=== PATIENT | female | born 1990 | race Two or more races ===

== ENCOUNTER 2023-10-08 19:23 | Outpatient (REF) | payer BC, SELFPAY ==
[2023-10-14 11:09] LABS: Age Gdln ACOG Testing Note (.); HPV Aptima Negative (Negative); IGP, Aptima HPV, rfx 16/18,45 Note (.)
== END 2023-10-08 19:24 | disposition home or self-care (01) ==
LOC: LAB 19:23
PROVIDERS: PCP Nurse Practitioner; Visit Provider Obstetrics & Gynecology
DX: Z01.419 Encounter for gynecological examination (general) (routine) without abnormal findings (principal)
CPT/HCPCS: 87624; G0145

== ENCOUNTER 2025-04-04 11:23 | Outpatient (OUT) | payer BC, SELFPAY ==
--- OUTSIDE RECORDS SUMMARY | 2025-04-04 11:25 | XMS_ITS | Encounter Summary ---
Author Organization CodeCombat tem Address [facility] [id number] [address] [place] [address] Care Team Providers Care Food And Beverage Operations Manager Name Role Phone No Pcp, No Pcp Primary Care Provider Unavailabl e Encounter Details Date Type Department Care Team (Late st Contact Info) Description 03/09/2023 Orders Only [facility] Services - Women's Services [address] [place] [address] Farrah Champion, TOWBOAT ENGINEER-[facility] [address] [place] [address] Social History Tobacco Use Types Packs/Day Years Used Date Smoking Tobacco: Never Smokeless Tobacco: Never Alcohol Use Standard Drinks/Week Comments Yes 0 (1 standard drink = 0.6 oz pur e alcohol) ocassionally Social Connection and Isolat ion Panel [NHANES] Answer Date Recorded In a typical week, how many times do you talk on the phone with family, friends, or neighbors? More than three times a week 11/09/2020 How often do you get togethe r with friends or relatives? More than three times a week 11/09/2020 How often do you attend chur ch or church services? Never 11/09/2020 Do you belong to any clubs o r organizations such as congregation groups, unions, fraternal or athletic groups, or school groups? No 11/09/2020 Attends Club or Organization Meetings Not on rayray e 11/09/2020 Are you , , di vorced, , never , or living with a partner? Living with partner 11/09/2020 AUDIT-C Answer Date Recorded Frequency of Alcohol Consumption Never 09/07/2018 Average Number of Drinks Not on file 019 Frequency of Binge Drinking Not on file 08/27 Overall Financial Resource Strain (CARDIA) Answe r Date Recorded How hard is it for you to pa y for the very basics like food, housing, medical care, and heating? Not hard at all 11/09/2020 PHQ-2 Answer Date Recorded Total Score 0 11/09/2020 [facility] - Occupational Stress Questionnaire Answer Date Recorded Do you feel stress - tense, restless, nervous, or anxious, or unable to sleep at night because your mind is troubled all the time - these days? Not at all 11/09/2020 Exercise Vital Sign Answer Date Recorde d On average, how many days pe r week do you engage in moderate to strenuous exercise (like a brisk walk)? 0 days 11/09/2020 On average, how many minutes do you engage in exercise at this level? 0 min 11/09/2020 PRAPARE - Transportation Answer Date Re corded In the past 12 months, has l ack of transportation kept you from medical appointments or from getting medications? No 10/25 In the past 12 months, has l ack of transportation kept you from meetings, work, or from getting things needed for daily living? No 11/09/2020 [place] Depression Scale Answer Date Recorded [place] Depression Scale Total 0 12/18/2020 The thought of harming myself has occurred to me . Never 12/18/2020 Childcare Answer Date Recorded Do problems getting child ca re make it difficult for you to work or study? No 11/09/2020 Employment Answer Date Recorded Do you need help finding a l al career center and/or a training program? No 11/09/2020 Purpose - Life Answer Date Recorded I have a purpose and direction in my life. Stron gly Agree 11/09/2020 Comments No Sex and Gender Information Value Date Recorded Sex Assigned at Not on file Legal Sex Female 11:43 AM EDT Gender Identity Not on file Sexual Orientation Not on file documented as of this encounter Plan of Treatment Not on file documented as of this encounter Procedures Procedure Name Priority Date/Time Associated Diagnosis Comments COLPOSCOPY Routine 04/10/2022 12:00 AM EDT documented in this encounter Results * Colposcopy (04/10/2022 12:00 AM EDT) us Not In System Ref Prov PROCEDURE/MINOR SURGICAL ORDERABLES Final Result MANUALLY TRANSCRIBED RESULTS documented in this encounter Visit Diagnoses Not on filedocumented in this encounter Additional Health Concerns Infection Onset Date Last Indicated Resolved Time COVID-19 Rule-Out 08/04/2023 08/04/2023 08/04/2023 8:20 PM EST Influenza 08/04/2023 08/04/2023 08/11/2023 11:1 2 PM EST Assessment Noted Time PHQ-9 Depression Total Score: 0 11/10/19 21 8:46 AM EDT documented as of this encounter Care Teams Food And Beverage Operations Manager Relationship Specialty Start Date End Date No Pcp, [place] [id number] PCP - General Family Medicine 08/04/23 documented as of this encounter
--- OUTSIDE RECORDS SUMMARY | 2025-04-04 11:25 | XMS_ITS | Encounter Summary ---
Author Organization [facility] Address [address] [facility] [place] [address] Care Team Providers Care Traffic Court Magistrate Name Role Phone Farrah Barragan MD Primary Care Provider [phone] Encounter Details Date Type Department Care Team (Late Contact Info) Description 01/09/2025 Results Follow-Up [facility] [address] [place] [address] Farrah Harrison MA THINPREP IMAGING PAP AND HPV DNA REFLEX HPV 16,18 Social History Tobacco Use Types Packs/Day Years Used Date Smoking Tobacco: Never Smokeless Tobacco: Never Alcohol Use Standard Drinks/Week Comments Not Currently 0 (1 standard drink = 0.6 oz pur e alcohol) Comments No Sex and Gender Information Value Date Recorded Sex Assigned at Not on file Legal Sex Female 1:56 PM EST Gender Identity Not on file Sexual Orientation Not on file documented as of this encounter Plan of Treatment Upcoming Encounters Date Type Department Care Team ([facility] Contact Info) Description 04/20/2025 3:50 PM EDT Office Visit [facility] [address] [place] [address] Digna Ham NP [address] [place] [address] documented as of this encounter Visit Diagnoses Not on filedocumented in this encounter Care Teams Traffic Court Magistrate Relationship Specialty Start Date End Date Farrah Barragan MD [address] [place] [address] PCP - General Family Medicine 01/12/24 documented as of this encounter
--- OUTSIDE RECORDS SUMMARY | 2025-04-04 11:25 | XMS_ITS | Encounter Summary ---
Author Organization Peerio tem Address [id number] [address] [place] [address] Care Team Providers Care Needle Process Felt Goods Supervisor Name Role Phone No Pcp, No Pcp Primary Care Provider Unavailabl e Reason for Visit * Reason Comments Med Refill Encounter Details Date Type Department Care Team ([facility] st Contact Info) Description 03/08/2023 Refill [facility] Services - Women's Services [address] [place] [id number] Farrah Champion, PACKER DRIED BEEF-[facility] [address] [place], [place] [id number] Encounter for surveillance of contraceptive pills Social History Tobacco Use Types Packs/Day Years [...] often do you attend chur ch or adventist services? Never 11/09/2020 Do you belong to any clubs o r organizations such as sabianism groups, unions, fraternal or athletic groups, or [...] Answer Date Recorded Total Score 0 11/09/2020 [facility] [place] of Occupat ional Health - Occupational Stress [...] things needed for daily living? No 11/09/2020 [place] Depression Scale Answer Date Recorded [place] Depression Scale Total 0 12/18/2020 The thought of harming myself has occurred to me . Never 12/18/2020 Childcare Answer Date Recorded Do problems getting child ca re make it difficult for you to work or study? No 11/09/2020 Employment Answer Date Recorded Do you need help finding a l ocal career center and/or a training program? No 11/09/2020 Purpose - Life Answer Date Recorded I have a purpose and direction in my life. Stron gly Agree 11/09/2020 Comments No Sex and Gender Information Value Date Recorded Sex Assigned at Not on file Legal Sex Female 11:43 AM EDT Gender Identity Not on file Sexual Orientation Not on file documented as of this encounter Miscellaneous Notes * Telephone Encounter - Bria Larry RN - 03/08/2023 4:11 PM EDT Patient notified. States she will make an appointment when her insurance kicks back in. documented in this encounter Plan of Treatment Not on file documented as of this encounter Visit Diagnoses Diagnosis Encounter for surveillance of contraceptive pills documented in this encounter Additional Health Concerns Infection Onset Date Last Indicated Resolved Time COVID-19 Rule-Out 08/04/2023 08/04/2023 08/04/2023 8:20 PM EST Influenza 08/04/2023 08/04/2023 08/11/2023 11:1 2 PM EST Assessment Noted Time PHQ-9 Depression Total Score: 0 11/10/19 21 8:46 AM EDT documented as of this encounter Care Teams Needle Process Felt Goods Supervisor Relationship Specialty Start Date End Date No Pcp, [place] [id number] PCP - General Family Medicine 08/04/23 documented as of this encounter
--- OUTSIDE RECORDS SUMMARY | 2025-04-04 11:25 | XMS_ITS | Clinical Summary ---
Author Organization Vindicia tem Address [id number] [address] [place] [address] Care Team Providers Care Game Room Attendant Name Role Phone No Pcp, No Pcp Primary Care Provider Unavailabl e Allergies No known active allergies Medications ibuprofen (ADVIL,MOTRIN) 800 mg tablet Take 1 tablet (800 mg total) by mouth every 8 (eight) hours as needed (cramping). 30 tablet 1 Active Additional Information Patient not taking.Reported on 04/10/2022 norethindrone-e.e stradioL-iron (JUNEL FE 08/15) 1 mg-20 mcg (21)/75 mg (7) per tabletIndications :Encounter for surveillance of contraceptive pills Take 1 tablet by mouth in the morning. 28 tablet 12 2 Active Active Problems Problem Noted Date Diagnosed Date HPV (human papilloma virus) infection 04/10/2022 Overview (08/19/2022): Pap history: -03/04/21: Pap NILM, +other HR HPV -03/17/22: Pap NILM, +other HR HPV Colpo 04/10/22 ecc non diagnostic, 4:00 CIN2, 7:00 CIN1, 11:00 CIN1 Plan: excisional procedure (leep vs leep with top hat due to ecc non-diagnostic). Positive GBS test 10/19/2020 History of delivery, currently 08/29/2020 Pyelectasis of fetus on ultrasound 09/2020 Refused influenza vaccine 08/28/2020 Obesity (BMI 30.0-34.9) 08/28/2020 Resolved Problems Problem Noted Date Diagnosed Date Resolved Date History of section 11/09/2020 11/15/2020 Third trimester 10/24/2020 History of gestational diabe lindsey in prior , currently 08/28/2020 11/15/2020 Late care 08/28/2020 History of macrosomia in inf ant in prior , currently 08/28/2020 11/15/2020 39 weeks gestation of 03/11/2019 03/17/2019 Gestational diabetes mellitu s (GDM) affecting third 03/10/2019 08/28/2020 Overview (03/17/2019): Will need a 2hr GTT at 6 week post- visit High-risk in third trimester 03/10/2019 03/17/2019 Overview (03/10/2019): A+/neg H/H 13.4/38.7 Plt 219 RPR NR Varicella immune Rubella immune HepBsAg neg Hep C Ab neg HIV Neg GC/CT neg Pap LSIL (09/21/2018) Early 1hr GTT 123 Hemoglobin electrophoresis negative Quad screen declined 28 week labs: plt 138 GBS + Declines LARC postplacenta Excessive growth affec ting management of in third trimester 03/09/2019 03/17/20 19 Overview (03/10/2019): EFW on 03/09/2019: Est. FW at 39 Wks: 5589gm, 12lb 5 oz Placenta: Anterior, away from cervical os pLTCS for suspected macrosomia, hx of shoulder dystocia with G1 on 03/11/19 @ 1000. Patient to be in L&D by 0800 for pre op, NPO at midnight before c/s. anomaly suspected but not found 11/12/2018 03/17/2019 Immunizations Immunization Administration Dates Next Due DTP 10/20/1994, 2,1990,1990,1 HPV9 04/10/2022 Hep B, Adolescent or Pediatric 02/07/2002,2001,08/09/2001 HiB 06/03/1991,04/21/1991,1990 MMR 08/09/2001,06/03/1991 OPV 10/20/1994,03/07/1992,1990 ,1990 Td, Unspecified 02/07/2002 Tdap 02/01/2021(Deferred: - Pt now states she received the vaccine back in October. Pt refused vaccine after scanned.),08/28/2020,06/04/2019 Family History Medical History Relation Name Comments No Known Problems Brother 1 No Known Problems Brother 2 Diabetes Father Kidney disease Father No Known Problems Maternal Grandfather No Known Problems Maternal Grandmother Cancer Mother Leukemia Mother 42 yo at diagno sis. AML. No Known Problems Paternal Grandfather Kidney disease Paternal Grandmother Bleeding Disorder Neg Hx Breast cancer Neg Hx Cervical cancer Neg Hx Clotting disorder Neg Hx Colon cancer Neg Hx Ovarian cancer Neg Hx Uterine cancer Neg Hx Relation Name Status Comments Brother 1 Alive Brother 2 Alive Father Alive Maternal Grandfather Maternal Grandmother Alive Mother Leukemia Paternal Grandfather COVID Paternal Grandmother COVID Social History Tobacco Use Types Packs/Day Years [...] often do you attend chur ch or protestant services? Never 11/09/2020 Do you belong to any clubs o r organizations such as caodaism groups, unions, fraternal or athletic groups, or [...] Answer Date Recorded Total Score 0 11/09/2020 [facility] of Occupat ional Health - Occupational Stress [...] things needed for daily living? No 11/09/2020 [place] Depression Scale Answer Date Recorded [place] Depression Scale Total 0 12/18/2020 The thought of harming myself has occurred to me . Never 12/18/2020 Childcare Answer Date Recorded Do problems getting child ca re make it difficult for you to work or study? No 11/09/2020 Employment Answer Date Recorded Do you need help finding a l al career center and/or a training program? No 11/09/2020 Hunger Screening Answer Date Recorded Within the past 12 months we worried whether our food would run out before we got money to buy more. Never True 08/04/2023 Within the past 12 months th e food we bought just didn't last and we didn't have money to get more. Never True 08/04/2023 Purpose - Life Answer Date Recorded I have a purpose and direction in my life. Stron gly Agree 11/09/2020 Comments No Sex and Gender Information Value Date Recorded Sex Assigned at Not on file Legal Sex Female 11:43 AM EDT Gender Identity Not on file Sexual Orientation Not on file Last Filed Vital Signs Vital Sign Reading Time Taken Comments Blood Pressure 125/81 08/04/2023 7:21 PM EST Pulse 126 08/04/2023 7:21 PM EST Temperature 38.2 C (100.8 F) 08/04/2023 7:21 PM EST Respiratory Rate 20 08/04/2023 7:21 PM EST Oxygen Saturation 98% 08/04/2023 7:21 PM EST Inhaled Oxygen Concentration - - Weight 81.6 kg (180 lb) 08/04/2023 7:21 PM EST Height 167.6 cm (5' 6 ) 08/04/2023 7:21 PM EST Body Mass Index 29.05 08/04/2023 7:21 PM EST Plan of Treatment Health Maintenance Due Date Last Done Comments Depression Screening 12/18/2021 12/18/2020 Adult BMI Screening 08/04/2024 08/04/2023 Tobacco Screening 08/04/2024 08/04/2023 Pap Smear 04/10/2025 04/10/2022, 02/25, 03/17/2022, Additional history exists DTaP,Tdap and Td Vaccines (9 - Td or Tdap) 02/01/2031 02/01/2021, 08/28/2020, 06/04/2019, Additional history exists Influenza Vaccine Discontinued Medical Devices Not on file Procedures Procedure Name Priority Date/Time Associated Diagnosis Comments COLPOSCOPY Routine 04/10/2022 12:00 AM EDT from Last 3 Months or Most Recently Relevant to Health Maintenance Results * Colposcopy (04/10/2022 12:00 AM EDT) us Not In System Ref Prov PROCEDURE/MINOR SURGICAL ORDERABLES Final Result MANUALLY TRANSCRIBED RESULTS from Last 3 Months or Most Recently Relevant to Health Maintenance Insurance [place] [employer] [place] [employer] Advance Directives * Full Code (Latest Code Status on File) Date Activated Date Inactivated Comments 11/09/2020 8:18 AM 11/11/2020 7:35 PM * Full Code Date Activated Date Inactivated Comments 03/11/2019 8:20 AM 03/13/2019 5:43 PM Care Teams Game Room Attendant Relationship Specialty Start Date End Date No Pcp, No Pcp [place] [id number] PCP - General Family Medicine 08/04/23
--- OUTSIDE RECORDS SUMMARY | 2025-04-04 11:25 | XMS_ITS | Clinical Summary ---
Author Organization [facility] Address [address] [facility] [place] [address] Care Team Providers Care Integration Software Developer Name Role Phone Farrah Barragan MD Primary Care Provider [phone] Allergies No known active allergies Medications metFORMIN XR (Glucophage-XR) 500 MG 24 hr tabletIndicatio ns:Encounter for weight management Take 1 tablet (500 mg) by mouth in the evening. Take with meals Do not crush, chew, or split. 30 tablet 11 Active phentermine (Adipex-P) 37.5 MG tabletIndicatio ns:Encounter for weight management Take 1 tablet (37.5 mg) by mouth in the morning. Take before meals. 90 tablet 5 06/18/20 Active phentermine (Adipex-P) 37.5 MG tabletIndicatio ns:Encounter for weight management Take 1 tablet (37.5 mg) by mouth in the morning. Take before meals. 30 tablet 5 03/20/20 25 Discontinued Encounters Date Type Department Care Team Description 03/20/2025 3:20 [place] [address] Scott Jara DO Pre-op examination; Request for sterilization; Encounter for weight management 02/20/2025 3:20 [place] [address] Scott Jara DO Unwanted fertility; Encounter to discuss procedure; Encounter for consultation for female sterilization; Encounter for weight management 02/20/2025 Travel 02/20/2025 Bamboo flowsheet [facility] [place] [facility] [address] [place] [address] [place] [phone] Scott Jara DO 01/31/2025 [facility] [address] [place] [phone] Elana Liu CNM Unwanted fertility 01/09/2025 Results [facility] [address] [place] [address] Farrah Harrison MA THINPREP IMAGING PAP AND HPV DNA REFLEX HPV 16,18 01/02/2025 5:00 PM EDT Office Visit [facility] [address] [place] [address] Elana Liu CNM Normal gynecologic examination; Screening for cervical cancer 01/02/2025 Bamboo flowsheet [facility] [address] [place] [address] Elana Liu CNM from Last 3 Months Family History Medical History Relation Name Comments htn Father Leukemia Mother Polycystic kidney disease Other Relation Name Status Comments Father Alive Mother Other Social History Tobacco Use Types Packs/Day Years Used Date Smoking Tobacco: Never Smokeless Tobacco: Never Tobacco Cessation:Counseling Given: Not Answered Alcohol Use Standard Drinks/Week Comments Not Currently 0 (1 standard drink = 0.6 oz pur e alcohol) Comments No Sex and Gender Information Value Date Recorded Sex Assigned at Not on file Legal Sex Female 1:56 PM EST Gender Identity Not on file Sexual Orientation Not on file Last Filed Vital Signs Vital Sign Reading Time Taken Comments Blood Pressure 120/82 03/20/2025 3:53 PM EDT Pulse - - Temperature - - Respiratory Rate - - Oxygen Saturation - - Inhaled Oxygen Concentration - - Weight 80.4 kg (177 lb 4 oz) 03/20/2025 3:53 PM EDT Height 165.1 cm (5' 5 ) 03/20/2025 3:53 PM EDT Body Mass Index 29.5 03/20/2025 3:53 PM EDT Plan of Treatment Upcoming Encounters Date Type Department Care Team (Late st Contact Info) Description 04/20/2025 3:50 PM EDT Office Visit [facility] [address] [facility] [place] [address] FatoumataDigna shah, RN DIABETES [address] [facility] [place] [address] Health Maintenance Due Date Last Done Comments Influenza Vaccine (#1) 2025 Cervical Cancer Screening 01/02/2030 HPV/Cotest 01/02/2030 03/04/2021 Pap Smear 01/02/2030 01/02/2025, 10/08/2023 Procedures Procedure Name Priority Date/Time Associated Diagnosis Comments THINPREP IMAGING PAP AND HPV DNA REFLEX HPV 16,18 Routine 01/02/2025 5:00 PM EDT Screening for cervical cancer PAP SMEAR Routine 01/02/2025 12:00 AM EDT from Last 3 Months Results * THINPREP IMAGING PAP AND HPV DNA REFLEX HPV 16,18 (01/02/2025 5:00 PM EDT) CLINICAL INFORMATION [facility] Comment:None given LMP [facility] Comment:NONE GIVEN PREV. PAP [facility] Comment:NONE GIVEN PREV. BX [facility] Comment:NONE GIVEN SOURCE [facility] Comment:None given STATEMENT OF ADEQUACY [facility] Comment: Satisfactory for evaluation. Endocervical/transformation zone component absent. INTERPRETATION/RESU LT [facility] Comment: Cytology Results: Negative for intraepithelial lesion or malignancy. COMMENT [facility] Comment: This Pap test has been evaluated with computer assisted technology. PACKING CHECKER [facility] Comment: EMP, CT(ASCP) CT screening location: [place] [address]. REVIEW PACKING CHECKER [facility] Comment: NNO, CT(ASCP) CT screening location: [place] [address]. (ALWAYS MESSAGE) [facility] Comment: EXPLANATORY NOTE: The Pap is a screening test for cervical cancer. It is not a diagnostic test and is subject to false negative and false positive results. It is most reliable when a satisfactory sample, regularly obtained, is submitted with relevant clinical findings and history, and when the Pap result is evaluated along with historic and current clinical information. HPV DNA, HIGH RISK, CERVICAL Not Detected NOT DETECTED [facility] Comment: Not Detected High Risk HPV types (16,18,31,33,35,39,45,51,52, 56,58,59,66,68) were not detected. Other HPV types which cause anogenital lesions may be present. The significance of the other types of HPV in malignant processes has not been established. Methodology: Real Time PCR Swab Cervical swab / Unknown 01/02/2025 5:00 PM EDT 01/04/2025 3:38 AM EDT Narrative Resulting Agency Comment Performing Organization Information Site ID: [id number] Name: [facility] Address: [address] [place] [address] [place] [address] Director: Edilberto Gonsales M.D.,PhD Site ID: [id number] Name: [facility] Address: [address] [place] [address], [address] [place] [id number] Director: Freedom Carrasco MD Elana Liu [facility] CYTOLOGY ORDERABLES Teresa l Result Performing Organization Address [facility] de Phone Number [facility] * Pap Smear (01/02/2025 12:00 AM EDT) Swab Cervical swab / Unknown Elana Liu CN LAB CYTOLOGY ORDERABLES Teresa l Result Performing Organization Address [facility] Co de Phone Number EXTERNAL LAB from Last 3 Months Insurance [facility] Care Teams Integration Software Developer Relationship Specialty Start Date End Date Farrah Barragan MD [address] [phone] PCP - General Family Medicine 01/12/24
--- OUTSIDE RECORDS SUMMARY | 2025-04-04 11:25 | XMS_ITS | Encounter Summary ---
Author Organization [facility] Address [address] [place] [address] Care Team Providers Care Fine Hairer Name Role Phone Farrah Barragan MD Primary Care Provider [phone] Encounter Details Date Type Department Care Team ([facility] Contact Info) Description 11/16/2024 Telephone [facility] [address] [place] [address] Elana Liu [facility] [address] [place], [place] [id number] Social History Tobacco Use Types Packs/Day Years Used Date Smoking Tobacco: Never Assessed Comments Unknown Sex and Gender Information Value Date Recorded Sex Assigned at Not on file Legal Sex Female 1:56 PM EST Gender Identity Not on file Sexual Orientation Not on file documented as of this encounter Miscellaneous Notes * Telephone Encounter - Shi Sharma MA - 11/17/2024 11:03 AM EDT I contacted pt about her daughters and while we were on the phone she asked if there was any updateon the status of becoming a new patient of [facility]. * Telephone Encounter - Aurelia Martinez - 11/16/2024 9:28 AM EDT Princess is calling to schedule as EMAIL MARKETER, but currently pt of Estefani. She said the reason she wants to switch is because he is impossible to get into and has to rs appts often and them hard to get rs. I did advise that you also deliver babies and have to rs from time to time as well, and that because she is current pt of Estefani and both are [facility] would need to ask if you are okay accepting her. Please advise. documented in this encounter Plan of Treatment Upcoming Encounters Date Type Department Care Team (Late st Contact Info) Description 04/20/2025 3:50 PM EDT Office Visit [facility] [address] [facility] [phone] Digna Ham, MILENA [address] [facility] [facility] [place] [phone] documented as of this encounter Visit Diagnoses Not on filedocumented in this encounter Care Teams Fine Hairer Relationship Specialty Start Date End Date Farrah Barragan MD [address] [place] [address] PCP - General Family Medicine 01/12/24 documented as of this encounter
--- OUTSIDE RECORDS SUMMARY | 2025-04-04 11:26 | XMS_ITS | Encounter Summary ---
Author Organization [employer] Address [id number] [address] [place] [address] Care Team Providers Care Genomics Scientist Name Role Phone No Pcp, No Pcp Primary Care Provider Unavailabl e Encounter Details Date Type Department Care Team (Late st Contact Info) Description 03/17/2022 Telephone [facility] Services - Women's Services [address] [place] [address] Cherelle Rocha, ERICK Social History Tobacco Use Types Packs/Day Years [...] often do you attend chur ch or amish services? Never 11/09/2020 Do you belong to any clubs o r organizations such as restorationism groups, unions, fraternal or athletic groups, or [...] Answer Date Recorded Total Score 0 11/09/2020 [facility] Occupat ional Health - [...] things needed for daily living? No 11/09/2020 [place] Depression Scale Answer Date Recorded [place] Depression Scale Total 0 12/18/2020 The thought of harming myself has occurred to me . Never 12/18/2020 Childcare Answer Date Recorded Do problems getting child ca re make it difficult for you to work or study? No 11/09/2020 Employment Answer Date Recorded Do you need help finding a [facility] and/or a training program? No 11/09/2020 Purpose - Life Answer Date Recorded I have a purpose and direction in my life. Stron gly Agree 11/09/2020 Comments No Sex and Gender Information Value Date Recorded Sex Assigned at Not on file Legal Sex Female 11:43 AM EDT Gender Identity Not on file Sexual Orientation Not on file COVID-19 Exposure Response Date Recorded In the last month, have you been in contact with someone who was confirmed or suspected to have Coronavirus / COVID-19? No / Unsure 03/17/2022 1:17 PM EDT documented as of this encounter Plan of [...] documented as of this encounter Care Teams Genomics Scientist Relationship Specialty Start Date End Date No Pcp, [place] [address] PCP - General Family Medicine 08/04/23 documented as of this encounter
--- OUTSIDE RECORDS SUMMARY | 2025-04-04 11:26 | XMS_ITS | Encounter Summary ---
Author Organization [employer] [facility] Address [id number] [address] [place] [address] Care Team Providers Care Fruit Thinner Machine Operator Name Role Phone No Pcp, No Pcp Primary Care Provider Unavailabl e Reason for Visit * Reason Comments Med Refill Encounter Details Date Type Department Care Team ([facility] st Contact Info) Description 03/12/2022 Refill Center for [facility] Services - Women's Services [address] [place] [phone] La Mitchell, CUSTOMER COMPLAINT CLERK-MANAGER MEETING [address] [place] [address], [address] [place], [place] [id number] Encounter for surveillance of contraceptive pills Social History Tobacco Use Types Packs/Day Years Used Date Smoking Tobacco: Never Smokeless Tobacco: Never Alcohol Use Standard Drinks/Week Comments No 0 (1 standard drink = 0.6 oz pur e alcohol) Social Connection and Isolat ion Panel [NHANES] Answer Date Recorded In a typical week, how many times do you talk on the phone with family, friends, or neighbors? More than three times a week 11/09/2020 How often do you get togethe r with friends or relatives? More than three times a week 11/09/2020 How often do you attend chur ch or zoroastrianism services? Never 11/09/2020 Do you belong to any clubs o r organizations such as jainism groups, unions, fraternal or athletic groups, or [...] Answer Date Recorded Total Score 0 11/09/2020 [facility] of Occupat ional Health - Occupational Stress [...] things needed for daily living? No 11/09/2020 [place] Depression Scale Answer Date Recorded [place]ie Depression Scale Total 0 12/18/2020 The thought of harming myself has occurred to me . Never 12/18/2020 Childcare Answer Date Recorded Do problems getting child ca re make it difficult for you to work or study? No 11/09/2020 Employment Answer Date Recorded Do you need help finding a [employer] [employer] career [employer] and/or a training program? No [...] encounter Miscellaneous Notes * Telephone Encounter - DOMENICO Hollingsworth - 03/12/2022 1:23 AM EDT Rx . Please schedule for bc renewal * Telephone Encounter - Cherelle Rocha RN - 03/12/2022 1:23 AM EDT Pt notified of need for office appointment before refill can be authorized. documented in this encounter Plan of Treatment [...] documented as of this encounter Care Teams Fruit Thinner Machine Operator Relationship Specialty Start Date End Date No Pcp, No Pcp [place] [address] PCP - General Family Medicine 08/04/23 documented as of this encounter
--- OUTSIDE RECORDS SUMMARY | 2025-04-04 11:26 | XMS_ITS | Encounter Summary ---
Author Organization [employer] tem Address [id number] [address] [place] [address] Care Team Providers Care Transformer Maker Name Role Phone No Pcp, No Pcp Primary Care Provider Unavailabl e Encounter Details Date Type Department Care Team (Late st Contact Info) Description 03/18/2019 Telephone [facility] Services - Women's Services [address] [place] [address] Sonal Luevano, Social History Tobacco Use Types Packs/Day Years Used Date Smoking Tobacco: Never Smokeless Tobacco: Never Alcohol Use Standard Drinks/Week Comments No 0 (1 standard drink = 0.6 oz pur e alcohol) AUDIT-C Answer Date Recorded Frequency of Alcohol Consumption Never 09/07/2018 Average Number of Drinks Not on file 019 Frequency of Binge Drinking Not on file 08/27 Childcare Answer Date Recorded Childcare Unknown 01/05/2019 Employment Answer Date Recorded Employment Unknown 01/05/2019 Comments No Sex and Gender Information Value [...] 08/04/2023 08/04/2023 08/11/2023 11:1 2 PM EST documented as of this encounter Care Teams Transformer Maker Relationship Specialty Start Date End Date No Pcp, [place] [address] PCP - General Family Medicine 08/04/23 documented as of this encounter
--- OUTSIDE RECORDS SUMMARY | 2025-04-04 11:26 | XMS_ITS | Encounter Summary ---
Author Organization [employer] tem Address [id number] [address] [place] [address] Care Team Providers Care Post Exchange Manager Name Role Phone No Pcp, No Pcp Primary Care Provider Unavailabl e Encounter Details Date Type Department Care Team (Late st Contact Info) Description 10/24/2020 Telephone [facility] Services - Women's Services [address] [place] [address] Cherelle Rocha, ERICK Social History Tobacco Use Types Packs/Day Years Used Date Smoking Tobacco: Never Smokeless Tobacco: Never Alcohol Use Standard Drinks/Week Comments No 0 (1 standard drink = 0.6 oz pur e alcohol) AUDIT-C Answer Date Recorded Frequency of Alcohol Consumption Never 09/07/2018 Average Number of Drinks Not on file 019 Frequency of Binge Drinking Not on file 08/27 [place] Depression Scale Answer Date Recorded [place] Depression Scale Total 2 08/28/2020 The thought of harming myself has occurred to me . Never 08/28/2020 Childcare Answer Date Recorded Childcare Unknown 01/05/2019 Employment Answer Date Recorded Employment Unknown 01/05/2019 Purpose - Life Answer Date Recorded Purpose and direction in life Unknown Comments Yes Sex and Gender Information Value Date Recorded Sex Assigned at Not on file Legal Sex Female 11:43 AM EDT Gender Identity Not on file Sexual Orientation Not on file COVID-19 Exposure Response Date Recorded In the last month, have you been in contact with someone who was confirmed or suspected to have Coronavirus / COVID-19? No / Unsure 10/24/2020 9:44 AM EDT documented as of this encounter Miscellaneous Notes * Telephone Encounter - Cherelle Rocha RN - 10/24/2020 12:01 PM EDT Pt calling asking for note to be off work starting now. 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 Please advise. Cherelle Rocha RN 10/24/20 1202 * Telephone Encounter - EZEQUIEL Swain - 10/24/2020 12:01 PM EDT Please ask if she has forms to be filled out or only needs on to be off work note. Thanks * Telephone Encounter - Frannie Roman RN - 10/24/2020 12:01 PM EDT At this point in time she just needs at off work note. Please place note * Telephone Encounter - EZEQUIEL Swain - 10/24/2020 12:01 PM EDT Wrote & routed. Thanks documented in this encounter Plan of Treatment Not on file documented as of this encounter Visit Diagnoses Not on filedocumented in this encounter Additional Health Concerns Infection Onset Date Last Indicated Resolved Time COVID-19 Rule-Out 08/04/2023 08/04/2023 08/04/2023 8:20 PM EST Influenza 08/04/2023 08/04/2023 08/11/2023 11:1 2 PM EST documented as of this encounter Care Teams Post Exchange Manager Relationship Specialty Start Date End Date No Pcp, [place] [address] PCP - General Family Medicine 08/04/23 documented as of this encounter
--- OUTSIDE RECORDS SUMMARY | 2025-04-04 11:26 | XMS_ITS | Encounter Summary ---
Author Organization [facility] tem Address [id number] [address] [place] [address] Care Team Providers Care Automatic Shirring Machine Operator Name Role Phone No Pcp, No Pcp Primary Care Provider Unavailabl e Encounter Details Date Type Department Care Team (Late st Contact Info) Description 09/13/2020 Orders Only [facility] [address] [place] [address] Johanna Ibanez, RN Social History Tobacco Use Types Packs/Day Years Used Date Smoking Tobacco: Never Smokeless Tobacco: Never Alcohol Use Standard Drinks/Week Comments No 0 (1 standard drink = 0.6 oz pur e alcohol) AUDIT-C Answer Date Recorded Frequency of Alcohol Consumption Never 09/07/2018 Average Number of Drinks Not on file 019 Frequency of Binge Drinking Not on file 08/27 [place] Depression Scale Answer Date Recorded [place] Depression Scale Total 2 08/28/2020 The thought [...] have Coronavirus / COVID-19? No / Unsure 09/12/2020 3:29 PM EST documented as of this encounter Plan of Treatment Not on file documented as of this encounter Visit Diagnoses Not on filedocumented in this encounter Additional Health Concerns Infection Onset Date Last Indicated Resolved Time COVID-19 Rule-Out 08/04/2023 08/04/2023 08/04/2023 8:20 PM EST Influenza 08/04/2023 08/04/2023 08/11/2023 11:1 2 PM EST documented as of this encounter Care Teams Automatic Shirring Machine Operator Relationship Specialty Start Date End Date No Pcp, [place] [address] PCP - General Family Medicine 08/04/23 documented as of this encounter
--- OUTSIDE RECORDS SUMMARY | 2025-04-04 11:31 | XMS_ITS | CCD ---
Author Organization [facility] Care Team Providers Care Implementation Advisor Name Role Phone AIYANA MORGAN Admitting Unavailable AIYANA MORGAN Attending Unavailable JOSE, GRUPO Primary Care Unavailable JC GEORGE Consulting Unavailable AIYANA MORGAN Consulting Unavailable JOSE, GRUPO Primary Care Unavailable JENA JULES Admitting Unavailable JENA JULES Attending Unavailable JENA JULES Consulting Unavailable AIYANA MORGAN Admitting Unavailable AIYANA MORGAN Attending Unavailable JC GEORGE Consulting Unavailable AIYANA MORGAN Consulting Unavailable AIYANA MORGAN Admitting Unavailable AIYANA MORGAN Attending Unavailable AIYANA MORGAN Consulting Unavailable JOSE, GRUPO Primary Care Unavailable BRANT MARTINEZ Admitting Unavailable BRANT MARTINEZ Attending Unavailable BRANT MARTINEZ Consulting Unavailable INES GAMEZ V Consulting Unavailable ESTEPHANIA QUIROGA Unavailable AIYANA MORGAN Admitting Unavailable AIYANA MORGAN Attending Unavailable MISC, DOCTOR Primary Care Unavailable AIYANA MORGAN Consulting Unavailable AIYANA MORGAN Admitting Unavailable AIYANA MORGAN Attending Unavailable JC GEORGE Consulting Unavailable AIYANA MORGAN Consulting Unavailable AIYANA MORGAN Admitting Unavailable AIYANA MORGAN Attending Unavailable AIYANA MORGAN Primary Care Unavailable AIYANA MORGAN Admitting Unavailable AIYANA MORGAN Attending Unavailable AIYANA MORGAN Consulting Unavailable AIYANA MORGAN Admitting Unavailable AIYANA MORGAN Attending Unavailable AIYANA MORGAN Consulting Unavailable AIYANA MORGAN Admitting Unavailable AIYANA MORGAN Attending Unavailable AIYANA MORGAN Admitting Unavailable AIYANA MORGAN Attending Unavailable INES GAMEZ V Consulting Unavailable AIYANA MORGAN Consulting Unavailable AIYANA MORGAN Admitting Unavailable AIYANA MORGAN Attending Unavailable AIYANA MORGAN Consulting Unavailable AIYANA MORGAN Admitting Unavailable AIYANA MORGAN Attending Unavailable [facility] GRUPO Primary Care Unavailable JC GEORGE Consulting Unavailable AIYANA MORGAN Consulting Unavailable MONIQUE NICHOLE Attending Unavailable NO PCP, NO PCP Primary Care Unavailable Farrah Barragan MD Primary Care Provider JOANN LIU Attending Unavailable KAYLYN JARA Attending Unavailable JOANN LIU Referring Unavailable KAYLYN JARA Attending Unavailable Medications Current Medications Medication Drug Class(es) Dates Sig (Normalized) Sig (Original) 24 hr metFORMIN hydrochloride 500 mg extended release oral tablet (2 sources) Biguanide Start: 02-20-2025 End: 03-22-2025 take 1 tablet by mouth every twenty-four hours at mealtime metFORMIN XR (Glucophage-XR) 500 MG 24 hr tablet Indications: Encounter for weight management Take 1 tablet (500 mg) by mouth in the evening. Take with meals Do not crush, chew, or split. 30 tablet 11 02/20/2025 03/22/2025 Active phentermine hydrochloride 37.5 mg oral tablet (3 sources) Sympathomimetic Amine Anorectic Start: 02-20-2025 End: 06-18-2025 take 1 tablet by mouth before mealtime phentermine (Adipex-P) 37.5 MG tablet Indications: Encounter for weight management Take 1 tablet (37.5 mg) by mouth in the morning. Take before meals. 90 tablet 03/20/2025 06/18/2025 Active Problems Active Problems Problem Classification Problem Date Documented Date Episodic/Chronic Administrative/social admission (3 sources) Patient encounter status; Translations: [Other specified counseling] 02-20-2025 Episodic Contraceptive and procreative management (3 sources) Unwanted fertility ; Translations: [Encounter for other general counseling and advice on contraception] 02-20-2025 Episodic Diabetes or abnormal glucose tolerance complicating ; childbirth; or the puerperium (12 sources) Gestational diabetes mellitus in , unspecified control; Translations: [Gestational diabetes mellitus in , diet controlled] Onset: 01-19-2019 Episodic Headache; including migraine (1 source) Headache; including migraine Onset: 08-04-2023 Influenza (1 source) Influenza due to other identified influenza virus with other respiratory manifestations; Translations: [Influenza due to other identified influenza virus with other respiratory manifestations] Onset: 08-04-2023 Episodic Menstrual disorders (4 sources) Amenorrhea, unspecified; Translations: [AMENORRHEA UNSPECIFIED] Onset: 06-02-2018 Chronic Other complications of (1 source) Maternal care for abnormalities of the heart rate or rhythm, second trimester, not applicable or unspecified; Translations: [MTRN CARE ABN FHR/R 2ND TRI NA/UNS] Onset: 11-05-2018 Other and delivery including normal (12 sources) Encounter for supervision of normal , unspecified, first trimester; Translations: [Encounter for supervision of normal , unspecified, unspecified trimester] Onset: 08-09-2018 Episodic Other screening for suspected conditions (not mental disorders or infectious disease) (6 sources) Encounter for screening for malignant neoplasm of cervix; Translations: [Cancer cervix screening status] Onset: 09-21-2018 01-02-2025 Episodic Residual codes; unclassified (1 source) 34 weeks gestation of ; Translations: [34 WEEKS GESTATION OF ] Onset: 02-22-2019 Residual codes; unclassified (1 source) 14 weeks gestation of ; Translations: [14 WEEKS GESTATION OF ] Onset: 09-21-2018 Residual codes; unclassified (1 source) 8 weeks gestation of ; Translations: [8 WEEKS GESTATION OF ] Onset: 08-05-2018 Residual codes; unclassified (1 source) 37 weeks gestation of ; Translations: [37 WEEKS GESTATION OF ] Onset: 03-13-2019 Residual codes; unclassified (1 source) 20 weeks gestation of ; Translations: [20 WEEKS GESTATION OF ] Onset: 11-05-2018 Unclassified (1 source) Generalized Body Aches Onset: 08-04-2023 Past or Other Problems Problem Classification Problem Date Documented Date Episodic/Chronic Benign neoplasm of uterus (1 source) Leiomyoma of uterus, unspecified; Translations: [LEIOMYOMA OF UTERUS UNSPECIFIED] Onset: 06-08-2018 Episodic Hemorrhage during ; abruptio placenta; placenta previa (4 sources) Antepartum hemorrhage, unspecified, second trimester; Translations: [ANTEPARTUM HEMORR UNS 2ND TRIMESTER] Onset: 09-19-2018 Episodic Immunizations and screening for infectious disease (1 source) Encounter for screening for infections with a predominantly sexual mode of transmission; Translations: [ENC SCREEN INFECTIONS SEXL TRANSMS] Onset: 09-23-2018 Episodic Intestinal infection (1 source) Viral intestinal infection, unspecified; Translations: [VIRAL INTESTINAL INFECTION UNSPEC] Onset: 08-05-2018 Episodic Other complications of (4 sources) Vomiting of , unspecified; Translations: [VOMITING OF UNSPECIFIED] Onset: 08-03-2018 Episodic Other complications of (1 source) Unspecified infection of urinary tract in , second trimester; Translations: [UNS INF URINARY TRACT PREG 2ND TRI] Onset: 09-21-2018 Episodic Skin and subcutaneous tissue infections (1 source) Cellulitis of abdominal wall; Translations: [Cellulitis of abdominal wall] Onset: 05-02-2017 Episodic Results Test Name Value Interpretation Reference Range Facility Cytology Cervical or vaginal smear or scraping studyon 01-02-2025 [facility] SARS/FLU A+B/RSV by NAAT/Mol ecularon 08-04-2023 SARS/FLU A+B/RSV by NAAT/Molecular FLU A PCR Positive (qualifier value) FLU B PCR Negative (qualifier value) RSV by PCR Negative (qualifier value) SARS CoV 2 Not detected (qualifier value) NOTE The Xpert Xpress SARS-CoV-2/Flu/RSV Plus test is a rapid, multiplexed real-time RT-PCR test intended for the simultaneous qualitative detection and differentiation of SARS-CoV-2, influenza A, influenza B and respiratory syncytial virus (RSV) viral RNA from individuals suspected of respiratory viral infection consistent with COVID-19 by their healthcare provider. This test has not been validated in asymptomatic patients. The Xpert Xpress SARS-CoV-2 test is intended for use by qualified and trained operators who are performing tests using either [employer] or [employer] systems and is limited to laboratories that meet the CLIA requirements to perform high and moderate complexity tests. The Xpert Xpress SARS-CoV-2/Flu/RSV Plus is only for use under the Food and Drug Administration's Emergency Use Authorization. Results are for the simultaneous detection and differentiation of SARS-CoV-2, influenza A, influenza B and RSV nucleic acids in clinical specimens. SARS-CoV-2, influenza A, influenza B and RSV RNA identified by this test are generally detectable in upper respiratory samples during the acute phase of infection. Positive results are indicative of the presence of the identified virus, but do not rule out bacterial infection or co-infection with other pathogens not detected by this test. Clinical correlation with patient history and other diagnostic information is necessary to determine patient infection status. The agent detected may not be the definite cause of disease. Negative results do not preclude SARS-CoV-2, influenza A, influenza B and RSV infection and should not be used as the sole basis for treatment or other patient management decisions. Negative results must be combined with clinical observations, patient history and epidemiological information. An Invalid result may occur with specimen-associated inhibition unable to be resolved with specimen repeat. Fact Sheet for Healthcare Providers: https://www.[facility].gov/m edia/155799/download Fact Sheet for Patients: https://www.[facility].gov/m edia/899309/download Normal [facility] Comment on above: Performed By: #### C OVFLR #### [facility] ([id number]) [address] [place] [address], [place] [address] US PREG GROWTHon 03-07-2019 US PREG GROWTH Patient: PRINCESS DSOUZA Exam Date: 03/07/2019 : 1990 Gender:F Ordering : DR. AIYANA MORGAN . Admission #: [id number] Family : Order #: [id number] CLICK HERE TO VIEW EXAM RADIOLOGY REPORT PROCEDURE: ULTRASOUND GROWTH COMPARISON: US PREG GROWTH, 02/09/2019. INDICATIONS: Gestational diabetes mellitus; 37w5d single TECNIQUE: Transabdominal sonographic examination for growth. FINDINGS: Heart Rate: 148 H.B./min Amniotic Fluid Volume 12.80 cm Number: 1 Position: Cephalic BIOMETRY: BPD: 9.69 cm 39 weeks, 4 days FL/AC: 0.18 1 HC: 35.40 cm 41 weeks, 2 days FL/BPD: 0.76 1 AC: 42 cm HC/AC: 0.84 1 FL: 7.41 cm 37 weeks, 6 days EFW: 5044 g 98% by AUA, 98% by EDC GESTATIONAL AGE: Age by EDC: 37 weeks, 5 days BRIAN by EDC: 2019-03-23 Age by US: 39 weeks, 4 days BRIAN by US: 2019-03-10 CONCLUSION: 1. Single live intrauterine with growth detailed above. 2. Estimated weight is at the 98th percentile by EDC. 3. There is suggestion of a cleft palate on today's study, although this was not seen on prior studies. Dictated by: Jc George M.D. on 03/07/2019 at 14:25 Approved by: Jc George M.D. on 03/07/2019 at 15:11 Normal [facility] GROUP B STREP CULTUREon 01-25 S. agalactiae Ag Ql (Unsp spec) Isolate 1 Streptococcus agalactiae Light growth of ORGANISM 1 Streptococcus agalactiae ANTIBIOTIC M.I.C RX STATUS Benzylpenicillin <=0.06 S F Ampicillin <=0.25 S F Cefotaxime <=0.12 S F Ceftriaxone <=0.12 S F Levofloxacin 0.5 S F Inducible Clindamycin Resistance Pos POS F Erythromycin 2 R F Clindamycin <=0.25 R F Linezolid <=2 S F Vancomycin 0.5 S F Tetracycline >=16 R F Normal [facility] Comment on above: Performed By: #### G BSCX ####[facility] [id number] [place], [place] [address]OomwiqDileep Carrero CHLAMYDIA/GONOCOCCUS NACHO ( AB/URINE/PAPon 02-17-2019 Chlamydia trachomatis, NACHO Negative Normal Negative [facility] Comment on above: Performed By: #### C BC #### [facility] [address] [place], [place] [address] Dileep Carrero Neisseria gonorrhoeae, NACHO Negative Normal Negative [facility] Comment on above: Performed By: #### C BC #### [facility] [address] [place], [place] [address] Dileep Carrero US PREG GROWTHon 02-09-2019 US PREG GROWTH Patient: PRINCESS DSOUZA Exam Date: 02/09/2019 : 1990 Gender:F Ordering : DR. AIYANA MORGAN . Admission #: [id number] Family : Order #: [id number] CLICK HERE TO VIEW EXAM RADIOLOGY REPORT PROCEDURE: ULTRASOUND GROWTH COMPARISON: None. INDICATIONS: Gestational diabetes mellitus O24.419; 34w0d TECNIQUE: Transabdominal sonographic examination for growth. FINDINGS: NUMBER: One. POSITION: Cephalic. AMNIOTIC FLUID VOL: Normal; 14.3 cm MAXIMUM VERTICAL POCKET: 8.6 cm BIPARIETAL DIAMETER: 9.2 cm; 37w 1d HEAD CIRCUMFERENCE: 32.9 cm; 37w 2d ABD CIRCUMFERENCE: 34.8 cm; 38w 5d FEMUR LENGTH: 7.0 cm; 35w 6d HC/AC: 0.94 FL/AC: 0.2 FL/BPD: 0.76 HEART RATE: 119 bpm BIOMETRY: BPD: 9.18 cm 37 weeks, 1 day FL/AC: 0.20 1 HC: 32.90 cm 37 weeks, 2 days FL/BPD: 0.76 1 AC: 34.80 cm 38 weeks, 5 days HC/AC: 0.94 1 FL: 6.99 cm 35 weeks, 6 days EFW: 3298 grams 73% by AUA, 98% by EDC GESTATIONAL AGE: Age by EDC: 34 weeks, 0 days BRIAN by EDC: March 23, 2019 Age by US: 37 weeks, 1 day BRIAN by US: March 01, 2019 CONCLUSION: 1. Estimated weight 98% by EDC Dictated by: Ines Gamez M.D. on 02/09/2019 at 08:41 Approved by: Ines Gamez M.D. on 02/09/2019 at 08:42 Normal [facility] GTT 3 HR PREGon 01-19-2019 Glucose [Mass/Vol] 113 mg/dL Normal [facility] Comment on above: Performed By: #### C BC #### [facility] [address] [place] [address] Dileep Alise Glucose [Mass/Vol] 188 mg/dL Normal [facility] Comment on above: Performed By: #### C BC #### [facility] [address] [place] [address] Dileep Alise Glucose [Mass/Vol] 180 mg/dL Normal [facility] Comment on above: Performed By: #### C BC #### [facility] [address] [place], [place] [id number] Dileep Alise Glucose [Mass/Vol] 71 mg/dL Critically low 74-106 Th e [facility] Comment on above: Performed By: #### C BC #### [facility] [address] [place], [place] [id number] Dileep Alise CBC W MANUAL DIFFon 12-24-19 19 ATYPICAL LYMPH # Normal [facility] Comment on above: Performed By: #### C BC #### [facility] [address] [place], [place] [id number] Dileep Alise ATYPICAL LYMPH % Normal [facility] Comment on above: Performed By: #### C BC #### [facility] [address] [place] [address] Dileep Alise BAND # Normal 0.0-0.3 [facility] Comment on above: Performed By: #### C BC #### [facility] [address] [place] [address] Dileep Alies BAND % Normal 0-5 [facility] Comment on above: Performed By: #### C BC #### [facility] [address] [place] [address] Dileep Alise BASOM # 0.00 103/ul Normal 0.00-0.10 [facility] Comment on above: Performed By: #### C BC #### [facility] [address] [place] [address] Dileep Alise BASOM % 0.0 % Critically low 0.2-2.0 [facility] Comment on above: Performed By: #### C BC #### [facility] [address] [place] [address] Dileep Alise BLAST # Normal [facility] Comment on above: Performed By: #### C BC #### [facility] [address] [place] [address] Dileep Alise BLAST % Normal [facility] Comment on above: Performed By: #### C BC #### [facility] [address] [place] [address] Dileep Alise CORRECTED WBC Normal 4.0-11.0 [facility] Comment on above: Performed By: #### C BC #### [facility] [address] [place] [address] Dileep Alise Eosinophils (Bld) [#/Vol] 0.07 103/ul Normal 0.00-0.70 [facility] Comment on above: Performed By: #### C BC #### [facility] [address] [place] [address] Dileep Carrero Eosinophils/100 WBC (Bld) 1.0 % Normal 0.9-7.0 [facility] Comment on above: Performed By: #### C BC #### [facility] [address] [place] [id number] Dileep Carrero Erythrocyte distribution width (RBC) [Ratio] 12.2 % Normal 11.0-15.0 [facility] Comment on above: Performed By: #### C BC #### [facility] [address] [place] [address] Dileep Alise Hematocrit (Bld) [Volume fraction] 32.2 % Critically low 36.0-48.0 [facility] Comment on above: Performed By: #### C BC #### [facility] [address] [place] [address] Dileep Alise Hemoglobin (Bld) [Mass/Vol] 11.3 g/dl Critically low 12.0-16.0 [facility] Comment on above: Performed By: #### C BC #### [facility] [address] [place], [place] [id number] Dileep Carrero LYMPHM # 0.47 103/ul Critically low 1.20-3.80 [facility] Comment on above: Performed By: #### C BC #### [facility] [address] [place], [place] [id number] Dileep Carrero LYMPHM% 7.0 % Critically low 20.5-60.0 [facility] Comment on above: Performed By: #### C BC #### [facility] [address] [place], [place] [id number] Dileep Tolentinoen MCH (RBC) [Entitic mass] 31.6 pg Normal 26.7-34.0 [facility] Comment on above: Performed By: #### C BC #### [facility] [address] [place], [place] [id number] Dileepsandrine Tolentinoen MCHC (RBC) [Mass/Vol] 35.1 g/dl Normal 29.9-35.2 [facility] Comment on above: Performed By: #### C BC #### [facility] [address] [place] [address] Dileep Carrero MCV (RBC) [Entitic vol] 89.9 fL Normal 81.0-99.0 [facility] Comment on above: Performed By: #### C BC #### [facility] [address] [place] [address] Dileep Alise METAMYELOCYTE # Normal [facility] Comment on above: Performed By: #### C BC #### [facility] [address] [place] [address] Dileep Alise METAMYELOCYTE % Normal [facility] Comment on above: Performed By: #### C BC #### [facility] [address] [place] [address] Dileep Alise MONOM# 0.20 103/ul Critically low 0.30-0.80 [facility] Comment on above: Performed By: #### C BC #### [facility] [address] [place] [address] Dileep Alise MONOM% 3.0 % Normal 1.7-12.0 [facility] Comment on above: Performed By: #### C BC #### [facility] [address] [place] [address] Dileep Alise MYELOCYTE # Normal [facility] Comment on above: Performed By: #### C BC #### [facility] [address] [place] [address] Dileep Alise MYELOCYTE % Normal [facility] Comment on above: Performed By: #### C BC #### [facility] [address] [place] [address] Dileep Alise NRBC Normal [facility] Comment on above: Performed By: #### C BC #### [facility] [address] [place] [address] Dileepsandrine Carrero Platelet mean volume (Bld) [Entitic vol] 10.3 fL Normal 9.5-13.5 [facility] Comment on above: Performed By: #### C BC #### [facility] [address] [place] [address] Dileepsandrine Tolentinoen Platelets (Bld) [#/Vol] 174 103/ul Normal 150-450 [facility] Comment on above: Performed By: #### C BC #### [facility] [address] [place], [place] [id number] Dileep Carrero RBC (Bld) [#/Vol] 3.58 106/ul Critically low 4.20-5.40 Th [facility] Comment on above: Performed By: #### C BC #### [facility] [address] [place], [place] [id number] Dileep Carrero SEG # 5.96 103/ul Normal 1.40-6.50 [facility] Comment on above: Performed By: #### C BC #### [facility] [address] [place], [place] [id number] Dileep Carrero Segmented neutrophils/100 WBC (Bld) 89.0 % Critically high 43.0-75.0 [facility] Comment on above: Performed By: #### C BC #### [facility] [address] [place] [address] Dileep Carrero WBC (Bld) [#/Vol] 6.7 103/ul Normal 4.0-11.0 [facility] Comment on above: Performed By: #### C BC #### [facility] [address] [place], [place] [id number] Dileep Carrero GLUCOSE - 1HRon 12-23-2018 Glucose [Mass/Vol] 138 mg/dL Critically high 74-106 T [facility] [place] Comment on above: Performed By: #### C BC #### [facility] [address] [place], [place] [id number] Dileep Carrero TSHon 12-23-2018 TSH Qn SEE BELOW Normal [facility] Comment on above: Result Comment: <0.3 4 UIU/ml HYPERTHYROID 0.34-5.60 UIU/ml EUTHYROID >5.60 UIU/ml HYPOTHYROID Performed By: #### C BC #### [facility] [address] [place] [address] Dileep Carrero TSH Qn 0.621 uIU/mL Normal 0.470-4.680 [facility] Comment on above: Performed By: #### C BC #### [facility] [address] [place], [place] [address] Dileep Carrero US PREG ANATOMY SINGLEon US PREG ANATOMY SINGLE [address] [place] [address] Patient: PRINCESS DSOUZA Exam Date: 11/01/2018 : 1990 Gender:F Ordering : DR. AIYANA MORGAN . Admission #: [id number] Family : Order #: [id number] CLICK HERE TO VIEW EXAM RADIOLOGY REPORT PROCEDURE: ULTRASOUND > 14 WEEKS COMPARISON: None. INDICATIONS: Routine care; 20w4d single TECHNIQUE: Transabdominal sonographic examination for obstetrical and evaluation. Transvaginal sonographic examination for obstetrical and evaluation. FINDINGS: FLUID / PLACENTA: Amniotic fluid volume: Subjectively normal for gestational age. Placental location: Anterior. No previa. Cervix Length: 4.5 cm, closed Heart Rate: 140 H.B./min Number: One ANATOMY: Normal structures: Cerebellum. Choroid plexus. Cisterna magna. Lateral cerebral ventricles. Orbits. Midline falx. Hard palate. 4-chamber heart. RVOT. LVOT. Stomach. Kidneys. Bladder. Umbilical cord insertion into abdomen. 3 vessel cord. Cervical spine. Thoracic spine. Lumbar spine. Sacral spine. Right upper extremity. Left upper extremity. Right lower extremity. Left lower extremity. Suboptimally seen: None. Abnormalities/Other: Abnormal heart rhythm. BIOMETRY: BPD: 4.67 cm 20 weeks, 0 days FL/AC: 0.23 1 HC: 18.40 cm 20 weeks, 5 days FL/BPD: 0.78 1 AC: 16 cm 21 weeks, 0 days HC/AC: 1.15 1 FL: 3.63 cm 21 weeks, 3 days EFW: 404 g 70% by AUA; 78% by EDC GESTATIONAL AGE: Age by EDC: 20 weeks, 4 days BRIAN by EDC: 2019-03-17 Age by current US: 20 weeks, 5 days BRIAN by current US: 2019-03-16 *Reference: [facility] Practice Guideline for the performance of Obstetric Ultrasound Examinations, April 26, 2007. CONCLUSION: 1. Single live intrauterine with growth detailed above. 2. A segment of abnormal heart rate was noted during the study. Further evaluation is recommended. Dictated by: Jc George M.D. on 11/01/2018 at 10:00 Approved by: Jc George M.D. on 11/01/2018 at 10:05 Normal [facility] PAP ACOG PANEL 4: 21 to 29on 09-24-2018 Age Gdln ACOG Testing 21-29 Normal [facility] Comment on above: Performed By: #### C BC #### [facility] [address] [place] [address] Dileep Alise Chlamydia, Nuc. Acid Amp Negative Normal Negative [facility] Comment on above: Result Comment: Perf ormed at: =G Performed By: #### C BC #### [facility] [address] [place] [address] Dileepsandrine Carrero DIAGNOSIS: Comment Abnormal [facility] Comment on above: Result Comment: EPIT HELIAL CELL ABNORMALITY. LOW-GRADE SQUAMOUS INTRAEPITHELIAL LESION (LSIL); (ENCOMPASSING HUMAN PAPILLOMAVIRUS /MILD DYSPLASIA/CIN1). Performed at: [facility] Performed By: #### C BC #### [facility] [facility] [address] [place] [address] Dileepsandrine Carrero Electronically signed by: Comment Normal [facility] Comment on above: Result Comment: Benjamín Angel MD, Pathologist Performed at: WB Performed By: #### C BC #### [facility] [address] [place] [address] Dileepsandrine Carrero Gonococcus, Nuc. Acid Amp Negative Normal Negative [facility] Comment on above: Result Comment: Perf ormed at: =G Performed By: #### C BC #### [facility] [address] [address] Dileep Alise Methodology: Comment Normal [facility] Comment on above: Result Comment: This liquid based ThinPrep(R) pap test was screened with the use of an image guided system. Performed at: WB Performed By: #### C BC #### [facility] [address] [place] [address] Dileepsandrine Carrero Note: Comment Normal [facility] Comment on above: Result Comment: The Pap smear is a screening test designed to aid in the detection of premalignant and malignant conditions of the uterine cervix. It is not a diagnostic procedure and should not be used as the sole means of detecting cervical cancer. Both false-positive and false-negative reports do occur. . Performed at: WB Performed By: #### C BC #### [facility] [address] [address] Dileep Carrero Pathologist Provided ICD10 Comment Normal [facility] Comment on above: Result Comment: [id number] Performed at: WB Performed By: #### C BC #### [facility] [address] [place] [address] Dileep Carrero Performed by: Comment Normal [facility] Comment on above: Result Comment: aRul Robledo, Supervisor Files (ASCP) Performed at: WB Performed By: #### C BC #### [facility] [address] [place] [address] Dileep Carrero Reflex Criteria: Comment Normal [facility] Comment on above: Result Comment: The HPV DNA reflex criteria were not met with this specimen result therefore, no HPV testing was performed. . Performed at: WB Performed By: #### C BC #### [facility] [address] [place] [address] Dileep Carrero Specimen adequacy: Comment Normal [facility] Comment on above: Result Comment: Sati sfactory for evaluation. Endocervical and/or squamous metaplastic cells (endocervical component) are present. Performed at: WB Performed By: #### C BC #### [facility] [address] [place] [address] Dileep Carrero Trich vag by NACHO Negative Normal Negative [facility] Comment on above: Result Comment: Perf ormed at: =G Performed By: #### C BC #### [facility] [address] [place] [address] Dileep Carrero . . Normal [facility] Comment on above: Result Comment: Perf ormed at: WB Performed By: #### C BC #### [facility] [address] [place] [address] Dileep Carrero CULTURE URINEon 09-21-2018 CULTURE URINE Culture Observations : CALLED GROUP B TO JALEN IN ER @ 1780 09/20/18 Isolate 1 STREPTOCOCCUS AGALACTIAE >100,000 CFU/ML Isolate 2 ESCHERICHIA COLI 10,000 CFU/ML ORGANISM 1 STREPTOCOCCUS AGALACTIAE ANTIBIOTIC M.I.C RX STATUS Ampicillin S F Benzylpenicillin S F Cefotaxime S F Ceftriaxone S F Clindamycin R F Erythromycin R F Inducible Clindamycin Resistance POS F Levofloxacin S F Linezolid S F Tetracycline R F Vancomycin S F ORGANISM 2 ESCHERICHIA COLI ANTIBIOTIC M.I.C RX STATUS Amikacin S F Ampicillin S F Ampicillin/Sulbactam S F Cefazolin S F Ceftazidime S F Ceftriaxone S F Ciprofloxacin S F Ertapenem S F Gentamicin S F Imipenem S F Levofloxacin S F Nitrofurantoin S F Piperacillin/Tazobact am S F Tobramycin S F Trimethoprim/Sulfamet hoxazole S F Normal [facility] Comment on above: Performed By: #### C BC #### [facility] [address] [place] [address] Dileep Carrero ABO AND RH TYPEon 09-19-2018 ABO and Rh group Nom (Bld) ABO Rh Typing A Rh Positive Normal [facility] Comment on above: Performed By: #### Willie GAVIN #### [facility] [address] [place], [place] [id number] Dileep Carrero ER URINE PROFILEon 9 Bilirubin [Mass/Vol] Negative Normal NEGATIVE [facility] Comment on above: Performed By: #### SHIRLEY HOPSON #### [facility] [address] [place], [place] [id number] Dileep Carrero BLOOD LARGE Normal NEGATIVE [facility] Comment on above: Performed By: #### SHIRLEY HOPSON #### [facility] [address] [place], [place] [id number] Dileep Carrero Clarity (U) SL CLOUDY Normal [facility] Comment on above: Performed By: #### SHIRLEY HOPSON #### [facility] [address] [place], [place] [id number] Dileep Alise Color (U) LT. YELLOW Normal YELLOW [facility] Comment on above: Performed By: #### SHIRLEY HOPSON #### [facility] [address] [place], [place] [id number] Dileep Alise ERUAHD A micrscopic examination will be performed if indicated. Normal [facility] Comment on above: Performed By: #### SHIRLEY HOPSON #### [facility] [address] [place] [address] Dileep Alise Glucose [Mass/Vol] Negative Normal NEGATIVE [facility] Comment on above: Performed By: #### SHIRLEY HOPSON #### [facility] [address] [place] [address] Dileep Alise Ketones Ql (U) Negative Normal NEGATIVE [facility] Comment on above: Performed By: #### SHIRLEY HOPSON #### [facility] [address] [place] [address] Dileep Alise Nitrite Ql (U) Negative Normal NEGATIVE [facility] Comment on above: Performed By: #### SHIRLEY HOPSON #### [facility] [address] [place] [address] Dileep Alise pH (Bld) 6.5 Normal 5-9 [facility] Comment on above: Performed By: #### SHIRLEY HOPSON #### [facility] [address] [place] [address] Dileep Alise Protein (U) [Mass/Vol] Negative Normal [facility] Comment on above: Performed By: #### SHIRLEY HOPSON #### [facility] [address] [place] [address] Dileep Alise SPEC GRAVITY 1.020 Normal 1.005-<=1.025 [facility] Comment on above: Performed By: #### SHIRLEY HOPSON #### [facility] [address] [place] [address] Dileep Alise UR MICRO IND INDICATED Normal [facility] Comment on above: Performed By: #### SHIRLEY HOPSON #### [facility] [address] [place] [address] Dileep Alise Urobilinogen Qn (U) 0.2 EU/dl Normal [facility] Comment on above: Performed By: #### ABRAN HOPSONRO #### [facility] [address] [place], [place] [id number] Dileep Alise WBC (Bld) [#/Vol] Negative Normal NEGATIVE [facility] Comment on above: Performed By: #### Alexis DIAL UMICRO #### [facility] [address] [place], [place] [id number] Dileep Alise URINE MICROSCOPIC ONLYon Bacteria LM.HPF (Urine sed) [#/Area] SMALL Normal NONE SEEN [facility] Comment on above: Performed By: #### Alexis DIAL UMICRO #### [facility] [address] [place] [address] Dileep Alise CAST NONE SEEN Normal NONE SEEN [facility] Comment on above: Performed By: #### Alexis DIAL UMICRO #### [facility] [address] [place] [address] Dileep Alise Crystals LM Nom (Urine sed) NONE SEEN Normal NONE SEEN [facility] Comment on above: Performed By: #### Alexis DIAL UMDANIELLERO #### [facility] [address] [place] [address] Dileep Alise CULTURE INDICATED Normal [facility] Comment on above: Performed By: #### Alexis DIAL UMICRO #### [facility] [address] [place] [address] Dileep Alise Epithelial cells LM.HPF (Urine sed) [#/Area] MANY Normal [facility] Comment on above: Performed By: #### Alexis DIAL UMICRO #### [facility] [address] [place] [address] Dileep Alise MUCOUS MODERATE Normal NONE SEEN [facility] Comment on above: Performed By: #### Alexis DIAL UMICRO #### [facility] [address] [place] [address] Dileep Alise RBC (U) [#/Vol] 5-10 Normal 0-2 [facility] Comment on above: Performed By: #### E SHIRLEY DIAL #### [facility] [address] [place], [place] [address] Dileep Carrero WBC (Bld) [#/Vol] 5-10 Normal NONE SEEN [facility] Comment on above: Performed By: #### SHIRLEY HOPSON #### [facility] [address] [place], [place] [address] Dileep Carrero US PREG DATING >14WEEKSon US PREG DATING >14WEEKS [address] [place] [address] Patient: PRINCESS DSOUZA Exam Date: 09/19/2018 : 1990 Gender:F Ordering : JOVANY MANZO Admission #: [id number] Family : DR BRANT MARTINEZ D.O. Order #: [id number] CLICK HERE TO VIEW EXAM RADIOLOGY REPORT PROCEDURE: ULTRASOUND DATING >14 WEEKS COMPARISON: None. INDICATIONS: Vaginal bleeding complicating early ; 14w3d TECHNIQUE: Transabdominal sonographic examination was performed for obstetrical and evaluation. TECHNIQUE: Transabdominal sonographic examination for obstetrical and evaluation. Transvaginal sonographic examination for obstetrical and evaluation. FINDINGS: NUMBER: Single. POSITION: Breech. AMNIOTIC FLUID VOLUME: Subjectively normal. PLACENTAL LOCATION: Anterior. Placental edge 1.2 cm from the internal cervical os. BIPARIETAL DIAMETER: 2.6 cm; 14 weeks, 4 days HEAD CIRCUMFERENCE: 10.7 cm; 15 weeks, 1 days ABD CIRCUMFERENCE: 9.1 cm; 15 weeks, 2 days FEMUR LENGTH: 1.6 cm; 14 weeks, 5 days CERVIX: Length: 5.0 cm. Closed. HEART RATE: 141 bpm BIOMETRY: BPD: 2.61 cm 14 weeks, 4 days 44.80 % FL/AC: 17.47 HC: 10.71 cm 15 weeks, 1 day 67.20 % FL/BPD: 60.75 AC: 9.08 cm 15 weeks, 2 days 82.10 % HC/AC: 1.18 FL: 1.59 cm 14 weeks, 5 days 55.80 % EFW: 111.77 g 76% by AUA, GESTATIONAL AGE: Clinical Age (by LMP): 14 weeks, 3 days Clinical BRIAN: 2018-03-17 Ultrasound Age: 15 weeks, 0 days Ultrasound BRIAN: 2019-03-13 *Reference: [facility] Practice Guideline for the performance of Obstetric Ultrasound Examinations, April 26, 2007. CONCLUSION: 1. Normal interval growth 2. Low lying placenta Dictated by: Ines Gamez M.D. on 09/19/2018 at 15:48 Approved by: Ines Gamez M.D. on 09/19/2018 at 15:50 Normal [facility] CULTURE URINEon 09-05-2018 CULTURE URINE Culture Observations : BETA STREP ALENAD TO MARIEL@/19/R K Isolate 1 STREPTOCOCCUS AGALACTIAE APPROX. 50,000 CFU/ML OF ORGANISM 1 STREPTOCOCCUS AGALACTIAE ANTIBIOTIC M.I.C RX STATUS Ampicillin S F Benzylpenicillin S F Cefotaxime S F Ceftriaxone S F Clindamycin R F Erythromycin R F Inducible Clindamycin Resistance POS F Levofloxacin S F Linezolid S F Tetracycline R F Vancomycin S F Normal [facility] Comment on above: Performed By: #### U RCX #### [facility] [address] [place] [address] Dileep Alise UA RANDOM W/MICROSCOPICon Bacteria LM.HPF (Urine sed) [#/Area] SMALL Normal NONE SEEN [facility] Comment on above: Performed By: #### U AMIC #### [facility] [address] [place] [address] Dileep Alise Bilirubin [Mass/Vol] Negative Normal NEGATIVE [facility] Comment on above: Performed By: #### U AMIC #### [facility] [address] [place] [address] Dileep Alise BLOOD Negative Normal NEGATIVE [facility] Comment on above: Performed By: #### U AMIC #### [facility] [address] [place], [place] [id number] Dileep Alise CAST NONE SEEN Normal NONE SEEN [facility] Comment on above: Performed By: #### U AMIC #### [facility] [address] [place], [place] [id number] Dileep Alise Clarity (U) CLEAR Normal [facility] Comment on above: Performed By: #### U AMIC #### [facility] [address] [address] Dileep Alise Color (U) YELLOW Normal YELLOW [facility] Comment on above: Performed By: #### U AMIC #### [facility] [address] [id number] Dileep Alise Crystals LM Nom (Urine sed) NONE SEEN Normal NONE SEEN [facility] Comment on above: Performed By: #### U AMIC #### [facility] [address] [id number] Dileep Alise Epithelial cells LM.HPF (Urine sed) [#/Area] FEW Normal [facility] Comment on above: Performed By: #### U AMIC #### [facility] [address] [place] [address] Dileep Alise Glucose [Mass/Vol] Negative Normal NEGATIVE [facility] Comment on above: Performed By: #### U AMIC #### [facility] [address] [address] Dileep Alise Ketones Ql (U) Negative Normal NEGATIVE [facility] Comment on above: Performed By: #### U AMIC #### [facility] [address] [id number] Dileep Alise MUCOUS TRACE Normal NONE SEEN [facility] Comment on above: Performed By: #### U AMIC #### [facility] [address] [place] [address] Dileep Alise Nitrite Ql (U) Negative Normal NEGATIVE [facility] Comment on above: Performed By: #### U AMIC #### [facility] [address] [address] Dileep Alise pH (Bld) 6.0 Normal 5-9 [facility] Comment on above: Performed By: #### U AMIC #### [facility] [address] [place] [address] Dileep Alise Protein [Mass/Vol] Negative Normal [facility] Comment on above: Performed By: #### U AMIC #### [facility] [address] [place], [place] [address] Dileep Carrero RBC (Bld) [#/Vol] 0-2 Normal 0-2 [facility] Comment on above: Performed By: #### U AMIC #### [facility] [address] [place], [place] [address] Dileep Carrero SPEC GRAVITY 1.025 Normal 1.005-<=1.025 [facility] Comment on above: Performed By: #### U AMIC #### [facility] [address] [place], [place] [address] Dileep Carrero Urobilinogen Qn (U) 0.2 EU/dl Normal [facility] Comment on above: Performed By: #### U AMIC #### [facility] [address] [place], [place] [address] Dileepsandrine Carrero WBC (Bld) [#/Vol] 2-5 Normal NONE SEEN [facility] Comment on above: Performed By: #### U AMIC #### [facility] [address] [place], [place] [address] Dileep Carrero WBC (Bld) [#/Vol] SMALL Normal NEGATIVE [facility] Comment on above: Performed By: #### U AMIC #### [facility] [address] [place], [place] [address] Dileep Carrero US PREG TVon 08-09-2018 PREG TV [address] [place] [address] Patient: PRINCESS DSOUZA Exam Date: 08/09/2018 : 1990 Gender:F Ordering : AIYANA MORGAN . Admission #: [id number] Family : Order #: [id number] CLICK HERE TO VIEW EXAM RADIOLOGY REPORT PROCEDURE: ULTRASOUND TRANSVAGINAL COMPARISON: None. INDICATIONS: test positive Z32.01; 8w4d TECHNIQUE: Transvaginal sonographic examination for obstetrical and evaluation. FINDINGS: GESTATIONAL SAC: Present and normal appearing. POLE: Present and normal appearing. YOLK SAC: Present. CARDIAC ACTIVITY: Present. UTERUS: Normal. OVARIES: Right: Normal. Left: Not seen. CUL-DE-SAC: Normal. CERVIX LENGTH: 4.4 cm in length. Closed. OTHER: None. LMP: Unknown. AGE BY US: 8 weeks, 4 days BRIAN BY US: March 17, 2019 CONCLUSION: 1. Single live intrauterine . Dictated by: Jc George M.D. on 08/09/2018 at 13:31 Approved by: Jc George M.D. on 08/09/2018 at 13:34 Normal [facility] CBC AUTO DIFFon 08-03-2018 Basophils (Bld) [#/Vol] 0.0 103/ul Normal 0.0-0.1 [facility] Comment on above: Performed By: #### C BC #### [facility] [address] [place] [address] Dileep Alise Basophils/100 WBC (Bld) 0.1 % Critically low 0.2-2.0 [facility] Comment on above: Performed By: #### C BC #### [facility] [address] [place] [address] Dileep Alise Eosinophils (Bld) [#/Vol] 0.0 103/ul Normal 0.0-0.7 [facility] Comment on above: Performed By: #### C BC #### [facility] [address] [place] [address] Dileep Alise Eosinophils/100 WBC (Bld) 0.3 % Critically low 0.9-7.0 [facility] Comment on above: Performed By: #### C BC #### [facility] [address] [place], [place] [id number] Dileep Alise Erythrocyte distribution width (RBC) [Ratio] 11.9 % Normal 11.0-15.0 [facility] Comment on above: Performed By: #### C BC #### [facility] [address] [place], [place] [id number] Dileep Alise Hematocrit (Bld) [Volume fraction] 40.3 % Normal 36.0-48.0 [facility] Comment on above: Performed By: #### C BC #### [facility] [address] [place], [place] [phone] Dileep Alise Hemoglobin (Bld) [Mass/Vol] 14.2 g/dL Normal 12.0-16.0 [facility] Comment on above: Performed By: #### C BC #### [facility] [address] [place] [address] Dileepsandrine Carrero IG # 0.02 10e3/ul Normal 0.00-0.03 [facility] Comment on above: Performed By: #### C BC #### [facility] [address] [place] [address] Dileep Alise IG % 0.3 % Normal 0.0-0.5 [facility] Comment on above: Performed By: #### C BC #### [facility] [address] [place] [address] Dileep Alise Lymphocytes (Bld) [#/Vol] 0.3 103/ul Critically low 1.2-3.8 [facility] Comment on above: Performed By: #### C BC #### [facility] [address] [place] [address] Dileep Alise Lymphocytes/100 WBC (Bld) 4.6 % Critically low 20.5-60.0 [facility] Comment on above: Performed By: #### C BC #### [facility] [address] [place] [address] Dileepsandrine Carrero MANUAL DIFF REQ NO Normal [facility] Comment on above: Performed By: #### C BC #### [facility] [address] [place] [address] Dileepsandrine Tolentinoen MCH (RBC) [Entitic mass] 31.8 pg Normal 26.7-34.0 [facility] Comment on above: Performed By: #### C BC #### [facility] [address] [place], [place] [id number] Dileep Alise MCHC (RBC) [Mass/Vol] 35.2 g/dL Normal 29.9-35.2 [facility] Comment on above: Performed By: #### C BC #### [facility] [address] [place] [address] Dileep Alise MCV (RBC) [Entitic vol] 90.2 fL Normal 81.0-99.0 [facility] Comment on above: Performed By: #### C BC #### [facility] [address] [place], [place] [id number] Dileep Alise Monocytes (Bld) [#/Vol] 0.3 103/ul Normal 0.3-0.8 [facility] Comment on above: Performed By: #### C BC #### [facility] [address] [place], [place] [id number] Dileep Alise Monocytes/100 WBC (Bld) 4.0 % Normal 1.7-12.0 [facility] Comment on above: Performed By: #### C BC #### [facility] [address] [place], [place] [id number] Dileep Alise Neutrophils (Bld) [#/Vol] 6.3 103/ul Normal 1.4-6.5 [facility] Comment on above: Performed By: #### C BC #### [facility] [address] [place], [place] [id number] Dileep Alise Neutrophils/100 WBC (Bld) 90.7 % Critically high 43.0-75.0 [facility] Comment on above: Performed By: #### C BC #### [facility] [address] [place], [place] [id number] Dileep Alise Platelet mean volume (Bld) [Entitic vol] 9.9 fL Normal 9.5-13.5 [facility] Comment on above: Performed By: #### C BC #### [facility] [address] [place], [place] [id number] Dileep Alise Platelets (Bld) [#/Vol] 193 103/ul Normal 150-450 [facility] Comment on above: Performed By: #### C BC #### [facility] [address] [place], [place] [address] Dileep Alise RBC (Bld) [#/Vol] 4.47 106/ul Normal 4.20-5.40 [facility] Comment on above: Performed By: #### C BC #### [facility] [address] [place], [place] [address] Dileep Alise WBC (Bld) [#/Vol] 7.0 103/ul Normal 4.0-11.0 [facility] Comment on above: Performed By: #### C BC #### [facility] [address] [place], [place] [address] Dileep Alise ER URINE PROFILEon 9 Bilirubin [Mass/Vol] Negative Normal NEGATIVE [facility] Comment on above: Performed By: #### E RUR #### [facility] [address] [place] [address] Dileep Alise BLOOD Negative Normal NEGATIVE [facility] Comment on above: Performed By: #### E RUR #### [facility] [address] [place] [address] Dileep Alise Clarity (U) CLEAR Normal [facility] Comment on above: Performed By: #### E RUR #### [facility] [address] [place] [address] Dileep Alise Color (U) YELLOW Normal YELLOW [facility] Comment on above: Performed By: #### E RUR #### [facility] [address] [place] [address] Dileep Alise ERUAHD A micrscopic examination will be performed if indicated. Normal [facility] Comment on above: Performed By: #### E RUR #### [facility] [address] [place] [address] Dileep Alise Glucose [Mass/Vol] Negative Normal NEGATIVE [facility] Comment on above: Performed By: #### E RUR #### [facility] [address] [place] [address] Dileep Alise Ketones Ql (U) 15 mg/dl Normal NEGATIVE [facility] Comment on above: Performed By: #### E RUR #### [facility] [address] [place] [address] Dileep Alise Nitrite Ql (U) Negative Normal NEGATIVE [facility] Comment on above: Performed By: #### E RUR #### [facility] [address] [place] [address] Dileep Alise pH (Bld) 5.5 Normal 5-9 [facility] Comment on above: Performed By: #### E RUR #### [facility] [address] [id number] Dileep Alise Protein (U) [Mass/Vol] Negative Normal [facility] Comment on above: Performed By: #### E RUR #### [facility] [address] [place], [place] [address] Dileep Alise SPEC GRAVITY >=1.030 Normal 1.005-<=1.025 [facility] Comment on above: Performed By: #### E RUR #### [facility] [address] [id number] Dileep Alise UR MICRO IND NOT INDICATED Normal [facility] Comment on above: Performed By: #### E RUR #### [facility] [address] [place], [place] [id number] Dileep Alise Urobilinogen Qn (U) 0.2 EU/dl Normal [facility] Comment on above: Performed By: #### E RUR #### [facility] [address] [place], [place] [id number] Idleep Alise WBC (Bld) [#/Vol] Negative Normal NEGATIVE [facility] Comment on above: Performed By: #### E RUR #### [facility] [address] [place], [place] [id number] Dileep Alise PROF CHEM 8 (BAS METB)on Anion gap [Moles/Vol] 13.9 mmol/L Normal [facility] Comment on above: Performed By: #### B MP #### [facility] [address] [place], [place] [id number] Dileep Alise Calcium [Mass/Vol] 8.7 mg/dL Normal 8.4-10.2 [facility] Comment on above: Performed By: #### B MP #### [facility] [address] [place], [place] [id number] Dileep Alise Chloride [Moles/Vol] 101 mmol/L Normal 98-107 [facility] Comment on above: Performed By: #### B MP #### [facility] [address] [place], [place] [address] Dileep Alise CO2 [Moles/Vol] 22.8 mmol/L Normal 22.0-30.0 [facility] Comment on above: Performed By: #### B MP #### [facility] [address] [place] [id number] Dileep Alise Creatinine [Mass/Vol] 0.74 mg/dL Normal 0.52-1.04 [facility] Comment on above: Performed By: #### B MP #### [facility] [address] [place], [place] [address] Dileep Alise EGFR-AF YEMENI >60 Normal >=60 [facility] Comment on above: Performed By: #### B MP #### [facility] [address] [place] [address] Dileep Alise EGFR-NON AF YEMENI >60 Normal >=60 [facility] Comment on above: Performed By: #### B MP #### [facility] [address] [address] Dileep Alise Glucose [Mass/Vol] 96 mg/dL Normal 74-106 [facility] Comment on above: Performed By: #### B MP #### [facility] [address] [place] [address] Dileep Alise Potassium [Moles/Vol] 3.7 mmol/L Normal 3.4-5.0 [facility] Comment on above: Performed By: #### B MP #### [facility] [address] [place] [address] Dileep Alise Sodium [Moles/Vol] 134 mmol/L Critically low 137-145 [facility] Comment on above: Performed By: #### B MP #### [facility] [address] [place], [place] [id number] Dileep Alise Urea nitrogen [Mass/Vol] 14.0 mg/dL Normal 7.0-17.0 [facility] Comment on above: Performed By: #### B MP #### [facility] [address] [place] [address] Dileep Alise Urea nitrogen/Creatinine [Mass ratio] 18.9 mg/mg Normal [facility] Comment on above: Performed By: #### B #### [facility] [address] [place], [place] [address] Dileep Carrero US PELVIS AND TRANSVAGon US PELVIS AND TRANSVAG [address] [place] [address] Patient: PRINCESS DSOUZA Exam Date: 06/02/2018 : 1990 Gender:F Ordering : AIYANA MORGAN . Admission #: [id number] Family : Order #: [id number] CLICK HERE TO VIEW EXAM RADIOLOGY REPORT PROCEDURE: ULTRASOUND PELVIS AND TRANSVAGINAL COMPARISON: None. INDICATIONS: Acute amenorrhea N91.2 TECHNIQUE: Transabdominal sonographic examination. Transvaginal sonographic examination. FINDINGS: UTERUS: Round isoechoic area within the fundal myometrium suspected to represent a leiomyoma, 1.6 x 1.4 x 1.2 cm. Uterus: 9.3 x 5.6 x 4.0 cm (108 cc) ENDOMETRIUM: Normal homogeneous appearance. Endometrial thickness: 4 mm RIGHT OVARY: Normal size and appearance. Blood flow present within ovary on color Doppler. Right ovary: 2.6 x 2.3 x 1.0 cm (3 cc) LEFT OVARY: Normal size and appearance. Blood flow is present within ovary on Color Doppler. Left ovary: 3.7 x 1.4 x 0.8 cm (2 cc) CUL-DE-SAC: Unremarkable. No significant free fluid. BLADDER: Unremarkable. OTHER: None. CONCLUSION: 1. Small uterine myometrial leiomyoma. 2. Unremarkable endometrium and ovaries. Dictated by: Jc George M.D. on 06/02/2018 at 15:29 Approved by: Jc George M.D. on 06/02/2018 at 15:43 Normal [facility] ED Provider Noteon 7 HIM IP Note OR [employer] Imp[employer]ator Normal [facility] Vital Signs Date Time Vital Sign Value Performing Clinician Faci lity 03-20-2025 15:53-0400 Body height 165.1 cm [employer] Work Phone: [facility] 03-20-2025 15:53-0400 Body mass index (BMI) [Ratio] 29.5 kg/m2 Kaylyn Estefani DO Work Phone: [facility] 03-20-2025 15:53-0400 Body weight 80.4 kg Kaylyn Estefani DO Work Phone: [facility] 03-20-2025 15:53-0400 Diastolic blood pressure 82 mm[Hg] Kaylyn Estefani DO Work Phone: [facility] 03-20-2025 15:53-0400 Systolic blood pressure 120 mm[Hg] Kaylyn Estefani DO Work Phone: [facility] 02-20-2025 15:55-0400 Body height 165.1 cm Kaylyn Estefani DO Work Phone: [facility] 02-20-2025 15:55-0400 Body mass index (BMI) [Ratio] 30.79 kg/m2 Kaylyn Estefani DO Work Phone: [facility] 02-20-2025 15:55-0400 Body weight 83.92 kg Kaylyn Estefani DO Work Phone: [facility] 02-20-2025 15:55-0400 Diastolic blood pressure 78 mm[Hg] Kaylyn Estefani DO Work Phone: [facility] 02-20-2025 15:55-0400 Systolic blood pressure 118 mm[Hg] Kaylyn Estefani DO Work Phone: [facility] 01-02-2025 17:22-0400 Body weight 84.82 kg Joann Floro CNM Work Phone: [facility] 01-02-2025 17:22-0400 Diastolic blood pressure 80 mm[Hg] Joann Floro CNM Work Phone: [facility] 01-02-2025 17:22-0400 Systolic blood pressure 120 mm[Hg] Joann Floro CNM Work Phone: [facility] Healthcare Encounters Encounter Date Encounter Type Care Provider Facility Start: 03-20-2025 End: 03-20-2025 ambulatory KAYLYN ESTEFANI Not Available Start: 03-20-2025 End: 03-20-2025 Office outpatient visit 15 minutes Kaylyn Estefani DO Work Phone: [facility] Comment on above: Pre-op examination; Request for sterilization; Encounter for weight management Start: 03-20-2025 End: 03-20-2025 Preprocedural examination done Kaylyn Estefani DO Work Phone: [facility] Start: 02-20-2025 End: 02-20-2025 ambulatory KAYLYN ESTEFANI Not Available Start: 02-20-2025 End: 02-20-2025 Office outpatient visit 15 minutes Kaylyn Estefani DO Work Phone: [facility] Comment on above: Unwanted fertility; Encounter to discuss procedure; Encounter for consultation for female sterilization; Encounter for weight management Start: 02-20-2025 End: 02-20-2025 Bamboo flowsheet Kaylyn Estefani DO Work Phone: [facility] Start: 02-20-2025 End: 02-20-2025 Bamboo flowsheet Kaylyn Estefani DO Work Phone: [facility] Start: 01-02-2025 End: 01-02-2025 ambulatory JOANN L FLORO Not Available Start: 01-02-2025 End: 01-02-2025 Gynecological examination normal Joann L Floro CNM Work Phone: [facility] Start: 01-02-2025 End: 01-02-2025 Periodic preventive med est patient 18-39 yrs Joann L Floro CNM Work Phone: [facility] Comment on above: Normal gynecologic e xamination; Screening for cervical cancer Start: 01-02-2025 End: 01-02-2025 Bamboo flowsheet Joann L Floro CNM Work Phone: [facility] Start: 01-02-2025 End: 01-02-2025 Bamboo flowsheet Joann L Floro CNM Work Phone: [facility] Start: 08-04-2023 End: 08-04-2023 Emergency department patient visit MONIQUE NICHOLE [facility] Start: 03-07-2019 End: 03-08-2019 Patient encounter procedure AIYANA MORGAN Facility:[facility]1 Start: 02-16-2019 End: 02-16-2019 Patient encounter procedure AIYANA MORGAN Facility:[facility] Start: 02-09-2019 End: 2019 Patient encounter procedure AIYANA MORGAN Facility:[facility] Start: 01-26-2019 End: 01-27-2019 Patient encounter procedure AIYANA MORGAN Facility:[facility] Start: 01-19-2019 End: 01-20-2019 Patient encounter procedure AIYANA MORGAN Facility:[facility] Start: 12-23-2018 End: 12-24-2018 Patient encounter procedure AIYANA MORGAN Facility:[facility] Start: 12-14-2018 End: 12-15-2018 Patient encounter procedure AIYANA MORGAN Facility:[facility] Start: 11-01-2018 End: 11-02-2018 Patient encounter procedure AIYANA MORGAN Facility:[facility] Start: 09-21-2018 End: 09-21-2018 Patient encounter procedure AIYANA MORGAN Facility:[facility] Start: 09-19-2018 End: 09-19-2018 Patient encounter procedure GRUPO JOSE Facility:[facility]1 Start: 09-03-2018 End: 09-03-2018 Patient encounter procedure AIYANA MORGAN Facility:[facility] Start: 08-09-2018 End: 08-10-2018 Patient encounter procedure AIYANA MORGAN Facility:[facility]1 Start: 08-03-2018 End: 08-03-2018 Patient encounter procedure GRUPO JOSE Facility:[facility]1 Start: 06-02-2018 End: 06-03-2018 Patient encounter procedure AIYANA MORGAN Facility:[facility]1 Start: 05-02-2017 End: 05-02-2017 Emergency department patient visit [facility] Procedures Date Procedure Procedure Detail Performing Clinician Start: 01-02-2025 Microscopic observat ion [Identifier] in Cervix by Cyto stain Kaylyn Jara DO Work Phone: Start: 01-02-2025 Cytp cerv/vag auto t hin layer prep mnl screen Joann Liu CNM Work Phone: Start: 10-08-2023 Microscopic observat ion [Identifier] in Cervix by Cyto stain Joann Popnia MILDRED Work Phone: Plan of Treatment Date Care Activity Detail Author Start: 01-02-2030 Screening for malign ant neoplasm of cervix [facility] Start: 10-07-2026 Screening for malign ant neoplasm of cervix [facility] Start: 03-04-2026 Screening for malign ant neoplasm of cervix HPV/Cotest [facility] Start: 04-20-2025 End: 04-20-2025 Patient encounter procedure 04/20/2025 3:50 PM EDT Office Visit [facility] [address] [phone] Digna Ham, SKIP LOCATOR [address] [place] [phone] [facility] [place] [facility] Start: 03-27-2025 Influenza vaccination [facility] Start: 03-20-2025 End: 03-20-2025 Patient encounter procedure 03/20/2025 3:50 PM EDT Consult ANDREA CARDOZA [address] [address] Kaylyn Jara DO [address] [place], [place] [id number] [facility] [place] [facility] Start: 01-02-2025 End: 01-02-2026 THINPREP IMAGING PAP AND HPV DNA REFLEX HPV 16,18 THINPREP IMAGING PAP AND HPV DNA REFLEX HPV 16,18 Pathology and Cytology Routine Screening for cervical cancer Expected: 01/02/2025 (Approximate), Expires: 01/02/2026 [facility] Work Phone: Comment on above: Expected: 01/02/2025 (Approximate), Expires: 01/02/2026 Payers Date Payer Category Payer [employer] BCBS [id number] 2023 Unknown [id number] 2020 Medicaid [id number] 1990 Unknown [id number] 2.16.840.1.987982.3.579.2. 593 1990 Unknown [id number] 2.16.840.1.601014.3.579.2. 593 1990 Unknown [id number] 2.16.840.1.974909.3.579.2. 593 1990 Unknown [id number] 2.16.840.1.090611.3.579.2. 593 1990 Unknown [id number] 2.16.840.1.454490.3.579.2. 593 1990 Unknown [id number] 2.16.840.1.364786.3.579.2. 593 1990 Unknown [id number] 2.16.840.1.540331.3.579.2. 593 1990 Unknown [id number] 2.16.840.1.972470.3.579.2. 593 1990 Unknown [id number] 2.16.840.1.902200.3.579.2. 593 1990 Unknown [id number] 2.16.840.1.609703.3.579.2. 593 1990 Unknown [id number] 2.16.840.1.283946.3.579.2. 593 1990 Unknown [id number] 2.16.840.1.560026.3.579.2. 593 1990 Unknown [id number] 2.16.840.1.702326.3.579.2. 593 1990 Unknown [id number] 2.16.840.1.381463.3.579.2. 593 1990 Unknown [id number] 2.16.840.1.741649.3.579.2. 1286 1990 Unknown [id number] 2.16.840.1.023592.3.579.2. 1259 1990 Unknown [id number] 2.16.840.1.538542.3.579.2. 1259 1990 Unknown [id number] 2.16.840.1.310323.3.579.2. 1259 1959 Private Health Insurance [id number] Private Health Insurance [id number] 1959 Private Health Insurance [id number] Private Health Insurance [id number] Social History Date Type Detail Facility Tobacco smoking stat [facility] Tobacco smoking consumption unknown [facility] Start: 1990 Sex assigned at Not on file [facility] Start: 01-02-2025 End: 02-20-2025 Gender identity Not on file [facility] Start: 01-02-2025 Tobacco smoking stat [facility] Never smoked tobacco [facility] Start: 01-02-2025 Tobacco use and exposure Smokeless t obacco non-user [facility] Start: 01-02-2025 End: 02-20-2025 Alcoholic beverage intake Ex-drinker (finding) [facility] Start: 01-02-2025 End: 02-20-2025 History of Social function [facility] History of Present illness Narrative 03-20-2025 Janeth Jones - 03/20/2025 3:50 PM EDT Note Date & Type Note Facility 03-20-2025 History of Presen t illness Narrative Reason for Appointment: Patient ID: Princess Beauchamp is a 35 y.o. female who presents for Pre-op Visit and weight managment Patient presents today for Weight Management Consult. and Pre Op/weight management appointment. Patient is scheduled to undergo Da Cole assisted Bilateral Laparoscopic Salpingectomy on 04-14-[address] Jara at [facility]. MEDICATIONS Current Outpatient Medications Medication Instructions metFORMIN XR (GLUCOPHAGE-XR) 500 mg, Oral, Daily with evening meal, Do not crush, chew, or split. phentermine (ADIPEX-P) 37.5 mg, Oral, Daily before breakfast ALLERGIES No Known Allergies PROBLEMS Active Ambulatory Problems Diagnosis Date Noted No Active Ambulatory Problems Resolved Ambulatory Problems Diagnosis Date Noted No Resolved Ambulatory Problems Past Medical History: Diagnosis Date Gestational diabetes mellitus (GDM), delivered, current hospitalization ([facility]) H/O human papillomavirus infection HISTORY PAST MEDICAL HISTORY SOCIAL HISTORY Past Medical History: Diagnosis Date Gestational diabetes mellitus (GDM), delivered, current hospitalization ([facility]) H/O human papillomavirus infection Social History Tobacco Use Smoking status: Never Smokeless tobacco: Never Substance Use Topics Alcohol use: Not Currently Drug use: Never FAMILY HISTORY Family History Problem Relation Name Age of Onset Leukemia Mother Other (htn) Father Polycystic kidney disease Other SURGICAL HISTORY Past Surgical History: Procedure Laterality Date SECTION, LOW TRANSVERSE X2 CHOLECYSTECTOMY REVIEW OF SYSTEMS Review of Systems: Review of Systems Constitutional: Negative. HENT: Negative. Eyes: Negative. Respiratory: Negative. Cardiovascular: Negative. Gastrointestinal: Negative. Genitourinary: Negative. Musculoskeletal: Negative. Skin: Negative. Neurological: Negative. All other systems reviewed and are negative. Hematological: Negative. Endocrine: Negative. Allergic/Immunologic: Negative. OBJECTIVE Objective: OBGyn Exam Vitals: Estimated body mass index is 30.79 kg/m as calculated from the following: Height as of 02/20/25: 5' 5 . Weight as of 02/20/25: 185 lb. BP: Patient's last menstrual period was 02/02/2025 (approximate). ASSESSMENT & PLAN ICD-10-CM 1. Pre-op examination Z01.818 2. Request for sterilization Z30.2 Pre Op: Patient is doing well but has complaints of requesting sterilization. I have discussed conservative management vs. surgical management with the patient in detail and patient desires surgical management at this time. Patient will undergo Da Cole assisted Bilateral Laparoscopic Salpingectomy on 04-14-25. Surgical consents were signed, mmc was reviewed, and patient is to proceed to [facility] OR. Follow Up: Patient is to follow up between 1-2 weeks post operative to assess proper healing and recovery from procedure. Documented by Mariel Werner LPN on behalf of: Kaylyn Jara DO documented in this encounter [facility] History of Present illness Narrative 02-20-2025 Mariel Werner LPN - 02/20/2025 3:20 PM EDT Note Date & Type Note Facility 02-20-2025 History of Presen t illness Narrative Reason for Appointment: Patient ID: Princess Beauchamp is a 35 y.o. female who presents for Consult (Pt present today to discuss a tubal. Pt is a referral from Yashira Liu.) Patient presents today for Consult appointment. MEDICATIONS No current outpatient medications ALLERGIES No Known Allergies PROBLEMS Active Ambulatory Problems Diagnosis Date Noted No Active Ambulatory Problems Resolved Ambulatory Problems Diagnosis Date Noted No Resolved Ambulatory Problems Past Medical History: Diagnosis Date Gestational diabetes mellitus (GDM), delivered, current hospitalization ([facility]) H/O human papillomavirus infection HISTORY PAST MEDICAL HISTORY SOCIAL HISTORY Past Medical History: Diagnosis Date Gestational diabetes mellitus (GDM), delivered, current hospitalization ([facility]) H/O human papillomavirus infection Social History Tobacco Use Smoking status: Never Smokeless tobacco: Never Substance Use Topics Alcohol use: Not Currently Drug use: Never FAMILY HISTORY Family History Problem Relation Name Age of Onset Leukemia Mother Other (htn) Father Polycystic kidney disease Other SURGICAL HISTORY Past Surgical History: Procedure Laterality Date SECTION, LOW TRANSVERSE X2 CHOLECYSTECTOMY REVIEW OF SYSTEMS Review of Systems: Review of Systems Constitutional: Negative. HENT: Negative. Eyes: Negative. Respiratory: Negative. Cardiovascular: Negative. Gastrointestinal: Negative. Genitourinary: Negative. Musculoskeletal: Negative. Skin: Negative. Neurological: Negative. All other systems reviewed and are negative. Hematological: Negative. Endocrine: Negative. Allergic/Immunologic: Negative. OBJECTIVE Objective: Physical Exam Constitutional: Appearance: Normal appearance. She is well-developed. Cardiovascular: Rate and Rhythm: Normal rate and regular rhythm. Pulmonary: Effort: Pulmonary effort is normal. Breath sounds: Normal breath sounds. Abdominal: General: Bowel sounds are normal. There is no distension. Palpations: Abdomen is soft. Tenderness: There is no abdominal tenderness. There is no guarding or rebound. Musculoskeletal: General: No swelling. Normal range of motion. Right lower leg: No edema. Left lower leg: No edema. Neurological: Mental Status: She is alert and oriented to person, place, and time. Skin: General: Skin is warm and dry. Psychiatric: Mood and Affect: Mood normal. Behavior: Behavior normal. Vitals and nursing note reviewed. Exam conducted with a train attendant present. Vitals: There is no height or weight on file to calculate BMI. BP: 118/78 Patient's last menstrual period was 02/02/2025 (approximate). ASSESSMENT & PLAN ICD-10-CM 1. Unwanted fertility Z30.09 Ambulatory referral to Obstetrics / Gynecology 2. Encounter to discuss procedure Z71.89 3. Encounter for consultation for female sterilization Z30.09 Patient presents for appointment to discuss permanent sterilization. Patient desires weight management as well. Patient has completed childbearing and would like sterilization. Discussed Metformin, Adipex and GLP-1 medication. Patient has tried Semaglutide in the past and did not like how it made her feel. Patient to return to clinic in 1 month for Adipex #2 prescription. Patient will be able to then have Metformin increased to 1,000mg at second Adipex appointment. Patient signed Adipex consent at today's appointment and will return to clinic in 1 month for Pre-op/Adipex #2 visit. Documented by Mariel Werner LPN on behalf of: Kaylyn Jara DO documented in this encounter [facility] History of Present illness Narrative 01-02-2025 Joann Liu CNM - 01/02/2025 5:00 PM EDT Note Date & Type Note Facility 01-02-2025 History of Presen t illness Narrative YEARLY HPI: This is a new patient. Chief Complaint Patient presents with Gynecologic Exam Here for annual exam. 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: no Changes in healthsince last visit: \no Surgeries or hospitalizations since last visit: none control method: none Menses: regular every 28-30 days Last pap: 10/08/23 Other: History: Past Medical History: Diagnosis Date Gestational diabetes mellitus (GDM), delivered, current hospitalization H/O human papillomavirus infection Past Surgical History: Procedure Laterality Date SECTION, LOW TRANSVERSE X2 CHOLECYSTECTOMY Family History Problem Relation Name Age of Onset Leukemia Mother Other (htn) Father Polycystic kidney disease Other Allergies: No Known Allergies Medications: No current outpatient medications on file prior to visit. No current facility-administered medications on file prior to visit. ROS: Review of Systems All other systems reviewed and are negative. There were no vitals filed for this visit. Physical exam: Physical Exam Vitals reviewed. Constitutional: Appearance: Normal appearance. HENT: Head: Normocephalic. Right Ear: Tympanic membrane normal. Left Ear: Tympanic membrane normal. Mouth/Throat: Mouth: Mucous membranes are moist. Eyes: Pupils: Pupils are equal, round, and reactive to light. Cardiovascular: Rate and Rhythm: Normal rate and regular rhythm. Pulses: Normal pulses. Heart sounds: Normal heart sounds. Pulmonary: Effort: Pulmonary effort is normal. Breath sounds: Normal breath sounds. Chest: Breasts: Right: Normal. Left: Normal. Abdominal: General: Abdomen is flat. Bowel sounds are normal. Palpations: Abdomen is soft. Tenderness: There is no abdominal tenderness. Genitourinary: General: Normal vulva. Exam position: Lithotomy position. Vagina: Normal. No tenderness. Cervix: Normal. No cervical motion tenderness. Uterus: Normal. Adnexa: Right adnexa normal and left adnexa normal. Musculoskeletal: General: Normal range of motion. Cervical back: Normal range of motion and neck supple. Skin: General: Skin is warm and dry. Neurological: General: No focal deficit present. Mental Status: She is alert and oriented to person, place, and time. Psychiatric: Mood and Affect: Mood normal. Assessment and Plan: 1. Annual exam 2. SBE discussed: yes 3. Diet and exercise discussed: Yes 4. Wt control discussed: No 5. Safe sex discussed: No There are no diagnoses linked to this encounter. No follow-ups on file. There are no Patient Instructions on file for this visit. Farrah Sanchez MA, 01/02/2025 5:27 PM documented in this encounter [facility] Evaluation note Note Date & Type Note Facility Evaluation note Diagnosis Normal gynecologic examination Screening for cervical cancer Screening for malignant neoplasm of the cervix documented in this encounter [facility] Evaluation note Note Date & Type Note Facility Evaluation note Diagnosis Unwanted fertility Encounter to discuss procedure Encounter for consultation for female sterilization Encounter for weight management documented in this encounter [facility] Evaluation note Note Date & Type Note Facility Evaluation note Diagnosis Pre-op examination Request for sterilization Encounter for weight management documented in this encounter [facility] Summary Purpose Family History No Family History Records FoundNo Family History Records FoundNo Family History Records FoundNo Family History Records Found Advance Directives No Advanced Directives Records FoundNo Advanced Directives Records FoundNo Advanced Directives Records FoundNo Advanced Directives Records Found Additional Source Comments INFORMATION SOURCE (unrecogn ized section and content) DATE CREATED AUTHOR 01/19/2018 Aura Lucas [facility] DATE CREATED AUTHOR AUTHOR'S ORGANIZ ATION 03/26/2019 [facility] DATE CREATED AUTHOR AUTHOR'S ORGANIZ ATION 08/09/2023 [facility] DATE CREATED AUTHOR AUTHOR'S ORGANIZ ATION 03/21/2025 [facility] [employer] Care Teams (unrecognized sec tion and content) Implementation Advisor Relationship Specialty Start Date End Date Farrah Barragan MD [address] [place], [place] [id number] PCP - General Family Medicine 01/12/24 Implementation Advisor Relationship Specialty Start Date End Date Farrah Barragan MD [address] [facility] [place] [address] PCP - General Family Medicine 01/12/24 Implementation Advisor Relationship Specialty Start Date End Date Farrah Barragan MD [address] [place] [address] PCP - General Family Medicine 01/12/24 Implementation Advisor Relationship Specialty Start Date End Date Farrah Barragan MD [address] [place] [address] PCP - General Family Medicine 01/12/24 Reason for Visit (unrecogniz ed section and content) Reason Comments Gynecologic Exam Reason Comments Consult Pt present today to discuss a tubal. Pt is a referral from Yashira Liu. Specialty Diagnoses / Procedures Referred By Abhishek jennings Referred To Contact Obstetrics and Gynecology Diagnoses Unwanted fertility Procedures FL OFFICE/OUTPATIENT NEW HIGH MDM 60 MINUTES Joann Liu CNM [address] [place] [address] Phone: tel: fax: Kaylyn Jara, [address] [place] [address] Phone: tel: fax: Referral ID Status Reason Start Date Expiration Date V isits Requested Visits Authorized [id number] Closed Specialty Services Required 01/31/2025 07/30/2025 1 1 Reason Comments Pre-op Visit weight managment FOR RECORDS PERTAINING TO PATIENTS WHO ARE OR HAVE BEEN ENROLLED IN A CHEMICAL DEPENDENCY/SUBSTANCEABUSE PROGRAM, SOME INFORMATION MAY BE OMITTED. This clinical summary was aggregated from multiple sources. Caution should be exercised in using it in the provision of clinical care. This summary normalizes information from multiple sources, and as a consequence, information in this document may materially change the coding, format and clinical context of patient data. In addition, data may be omitted in some cases. CLINICAL DECISIONS SHOULD BE BASED ON THE PRIMARY CLINICAL RECORDS. [employer] [facility]. provides no warranty or guarantee of the accuracy or completeness of information in this document.
== END 2025-04-04 11:24 | disposition home or self-care (01) ==
LOC: PST 11:23
PROVIDERS: PCP Nurse Practitioner; Visit Provider Obstetrics & Gynecology
DX: Z01.818 Encounter for other preprocedural examination (principal)

== ENCOUNTER 2025-04-14 06:08 | Day surgery (SDC) | payer BC, SELFPAY ==
[2025-04-14] VITALS (11 sets, daily range): BP systolic 105–125; BP diastolic 64–81; PULSE 62–86; TEMP 36.1–36.5; O2SAT 94–100; BMI 28.9
--- OUTSIDE RECORDS SUMMARY | 2025-04-14 06:17 | XMS_ITS | CCD ---
Author Organization [facility] CliniSyky Care Team Providers Care Fire Assistant Name Role Phone AIYANA MORGAN Admitting Unavailable AIYANA MORGAN Attending Unavailable JOSE, GRUPO Primary Care Unavailable JC GEORGE Consulting Unavailable AIYANA MORGAN Consulting Unavailable JOSE, GRUPO Primary Care Unavailable JENA JULES Admitting Unavailable JENA JULES Attending Unavailable JENA JULES Consulting Unavailable AIYANA MORGAN Admitting Unavailable AIYANA MORGAN Attending Unavailable JC GEORGE Consulting Unavailable AIYANA MORGAN Consulting Unavailable IAYANA MORGAN Admitting Unavailable AIYANA OMRGAN Attending Unavailable AIYANA MORGAN Consulting Unavailable JOSE, [...] MORGAN Admitting Unavailable AIYANA MORGAN Attending Unavailable [facility]UPO Primary Care Unavailable JC GOERGE Consulting Unavailable AIYANA MORGAN Consulting Unavailable MONIQUE [...] or vaginal smear or scraping studyon 01-02-2025 [facility] Healthcar e SARS/FLU A+B/RSV by NAAT/Mol ecularon [...] operators who are performing tests using either GeneRukuku DX or Evcarcoity systems and is limited to laboratories that [...] specimen repeat. Fact Sheet for Healthcare Providers: https://www.[facility].gov/m edia/966001/download Fact Sheet for Patients: https://www.[facility].gov/m edia/736044/download Normal [facility] Comment on above: Performed By: #### C OVFLR #### [facility] ([id number]) [address] [place] [address], [place] [address] US PREG GROWTHon 03-07-2019 US PREG GROWTH Patient: PRINCESS DSOUZA Exam Date: 03/07/2019 : 1990 Gender:F Ordering : DR. AIYANA MORGAN . Admission #: [id number] Family : Order #: [id number] CLICK HERE TO VIEW EXAM RADIOLOGY REPORT [...] M.D. on 03/07/2019 at 15:11 Normal [facility] GROUP B STREP CULTUREon 01-25 S. [...] F Tetracycline >=16 R F Normal [facility] Comment on above: Performed By: #### G BSCX ####[facility] [id number] [place], [place] [address]GftyqgDileep Carrero CHLAMYDIA/GONOCOCCUS NACHO ( AB/URINE/PAPon 02-17-2019 Chlamydia trachomatis, NACHO Negative Normal Negative [facility] Comment on above: Performed By: #### C BC #### [facility] [address] [place], [place] [address] Dileep Carrero Neisseria gonorrhoeae, NACHO Negative Normal Negative [facility] Comment on above: Performed By: #### C BC #### [facility] [address] [place], [place] [address] Dileep Carrero US PREG GROWTHon 02-09-2019 US PREG GROWTH Patient: PRINCESS DSOUZA Exam Date: 02/09/2019 : 1990 Gender:F Ordering : DR. AIYANA MORGAN . Admission #: [id number] Family : Order #: [id number] CLICK HERE TO VIEW EXAM RADIOLOGY REPORT [...] Gamez M.D. on 02/09/2019 at 08:42 Normal [facility] GTT 3 HR PREGon 01-19-2019 Glucose [Mass/Vol] 113 mg/dL Normal [facility] Comment on above: Performed By: #### C BC #### [facility] [address] [place] [address] Dileep Alise Glucose [Mass/Vol] 188 mg/dL Normal [facility] Comment on above: Performed By: #### C BC #### [facility] [address] [place] [address] Dileep Alise Glucose [Mass/Vol] 180 mg/dL Normal [facility] Comment on above: Performed By: #### C BC #### [facility] [address] [place], [place] [address] Dileep Alise Glucose [Mass/Vol] 71 mg/dL Critically low 74-106 Th e [facility] Comment on above: Performed By: #### C BC #### [facility] [address] [place], [place] [address] Dileep Alise CBC W MANUAL DIFFon 12-24-19 19 ATYPICAL LYMPH # Normal [facility] Comment on above: Performed By: #### C BC #### [facility] [address] [place], [place] [address] Dileep Alise ATYPICAL LYMPH % Normal [facility] Comment on above: Performed By: #### C BC #### [facility] [address] [place] [address] Dileep Alise BAND # Normal 0.0-0.3 [facility] Comment on above: Performed By: #### C BC #### [facility] [address] [place] [address] Dileep Alise BAND % Normal 0-5 [facility] Comment on above: Performed By: #### C BC #### [facility] [address] [place] [address] Dileep Alise BASOM # 0.00 103/ul Normal 0.00-0.10 [facility] Comment on above: Performed By: #### C BC #### [facility] [address] [place] [address] Dileep Alise BASOM % 0.0 % Critically low 0.2-2.0 [facility] Comment on above: Performed By: #### C BC #### [facility] [address] [place] [address] Dileep Alise BLAST # Normal [facility] Comment on above: Performed By: #### C BC #### [facility] [address] [place] [address] Dileep Alise BLAST % Normal [facility] Comment on above: Performed By: #### C BC #### [facility] [address] [place] [address] Dileep Alise CORRECTED WBC Normal 4.0-11.0 [facility] Comment on above: Performed By: #### C BC #### [facility] [address] [place] [address] Dileep Alise Eosinophils (Bld) [#/Vol] 0.07 103/ul Normal 0.00-0.70 [facility] Comment on above: Performed By: #### C BC #### [facility] [address] [place] [address] Dileep Carrero Eosinophils/100 WBC (Bld) 1.0 % Normal 0.9-7.0 [facility] Comment on above: Performed By: #### C BC #### [facility] [address] [place] [id number] Dileep Carrero Erythrocyte distribution width (RBC) [Ratio] 12.2 % Normal 11.0-15.0 [facility] Comment on above: Performed By: #### C BC #### [facility] [address] [place] [id number] Dileep Alise Hematocrit (Bld) [Volume fraction] 32.2 % Critically low 36.0-48.0 [facility] Comment on above: Performed By: #### C BC #### [facility] [address] [place] [address] Dileep Alise Hemoglobin (Bld) [Mass/Vol] 11.3 g/dl Critically low 12.0-16.0 [facility] Comment on above: Performed By: #### C BC #### [facility] [address] [place], [place] [address] Dileep Carrero LYMPHM # 0.47 103/ul Critically low 1.20-3.80 [facility] Comment on above: Performed By: #### C BC #### [facility] [address] [place], [place] [address] Dileep Carrero LYMPHM% 7.0 % Critically low 20.5-60.0 The [facility] Comment on above: Performed By: #### C BC #### [facility] [address] [place], [place] [address] Dileep Tolentinoen MCH (RBC) [Entitic mass] 31.6 pg Normal 26.7-34.0 [facility] Comment on above: Performed By: #### C BC #### [facility] [address] [place], [place] [address] Dileepsandrine Tolentinoen MCHC (RBC) [Mass/Vol] 35.1 g/dl Normal 29.9-35.2 [facility] Comment on above: Performed By: #### C BC #### [facility] [address] [place] [address] Dileep Carrero MCV (RBC) [Entitic vol] 89.9 fL Normal 81.0-99.0 [facility] Comment on above: Performed By: #### C BC #### [facility] [address] [place] [address] Dileep Alise METAMYELOCYTE # Normal [facility] Comment on above: Performed By: #### C BC #### [facility] [address] [place] [address] Dileep Alise METAMYELOCYTE % Normal [facility] Comment on above: Performed By: #### C BC #### [facility] [address] [place] [address] Dileep Alise MONOM# 0.20 103/ul Critically low 0.30-0.80 [facility] Comment on above: Performed By: #### C BC #### [facility] [address] [place] [address] Dileep Alise MONOM% 3.0 % Normal 1.7-12.0 [facility] Comment on above: Performed By: #### C BC #### [facility] [address] [place] [address] Dileep Alise MYELOCYTE # Normal [facility] Comment on above: Performed By: #### C BC #### [facility] [address] [place] [address] Dileep Alise MYELOCYTE % Normal [facility] Comment on above: Performed By: #### C BC #### [facility] [address] [place] [address] Dileep Alise NRBC Normal [facility] Comment on above: Performed By: #### C BC #### [facility] [address] [place] [address] Dileepsandrine Carrero Platelet mean volume (Bld) [Entitic vol] 10.3 fL Normal 9.5-13.5 [facility] Comment on above: Performed By: #### C BC #### [facility] [address] [place] [address] Dileepsandrine Tolentinoen Platelets (Bld) [#/Vol] 174 103/ul Normal 150-450 [facility] Comment on above: Performed By: #### C BC #### [facility] [address] [place], [place] [address] Dileep Carrero RBC (Bld) [#/Vol] 3.58 106/ul Critically low 4.20-5.40 [facility] Comment on above: Performed By: #### C BC #### [facility] [address] [place], [place] [address] Dileep Carrero SEG # 5.96 103/ul Normal 1.40-6.50 [facility] Comment on above: Performed By: #### C BC #### [facility] [address] [place], [place] [address] Dileep Carrero Segmented neutrophils/100 WBC (Bld) 89.0 % Critically high 43.0-75.0 [facility] Comment on above: Performed By: #### C BC #### [facility] [address] [place] [address] Dileep Carrero WBC (Bld) [#/Vol] 6.7 103/ul Normal 4.0-11.0 [facility] Comment on above: Performed By: #### C BC #### [facility] [address] [place], [place] [address] Dileep Carrero GLUCOSE - 1HRon 12-23-2018 Glucose [Mass/Vol] 138 mg/dL Critically high 74-106 T [facility] Comment on above: Performed By: #### C BC #### [facility] [address] [place], [place] [address] Dileep Carrero TSHon 12-23-2018 TSH Qn SEE BELOW Normal [facility] Comment on above: Result Comment: <0.3 4 UIU/ml HYPERTHYROID 0.34-5.60 UIU/ml EUTHYROID >5.60 UIU/ml HYPOTHYROID Performed By: #### C BC #### [facility] [address] [place] [address] Dileep Carrero TSH Qn 0.621 uIU/mL Normal 0.470-4.680 [facility] Comment on above: Performed By: #### C BC #### [facility] [address] [place], [place] [address] Dileep Carrero US PREG ANATOMY SINGLEon US PREG ANATOMY SINGLE [address] [place] [address] Patient: PRINCESS DSOUZA Exam Date: 11/01/2018 : 1990 Gender:F Ordering : DR. AIYANA MORGAN . Admission #: [id number] Family : Order #: [id number] CLICK HERE TO VIEW EXAM RADIOLOGY REPORT [...] George M.D. on 11/01/2018 at 10:05 Normal [facility] PAP ACOG PANEL 4: 21 to 29on 09-24-2018 Age Gdln ACOG Testing 21-29 Normal [facility] Comment on above: Performed By: #### C BC #### [facility] [address] [place] [address] Dileep Alise Chlamydia, Nuc. Acid Amp Negative Normal Negative [facility] Comment on above: Result Comment: Perf ormed at: =G Performed By: #### C BC #### [facility] [address] [place] [address] Dileepsandrine Carrero DIAGNOSIS: Comment Abnormal [facility] Comment on above: Result Comment: EPIT HELIAL CELL ABNORMALITY. LOW-GRADE SQUAMOUS INTRAEPITHELIAL LESION (LSIL); (ENCOMPASSING HUMAN PAPILLOMAVIRUS /MILD DYSPLASIA/CIN1). Performed at: WB Performed By: #### C BC #### [facility] [address] [place] [address] Dileepsandrine Carrero Electronically signed by: Comment Normal [facility] Comment on above: Result Comment: Benjamín Angel MD, Pathologist Performed at: WB Performed By: #### C BC #### [facility] [address] [place] [address] Dileepsandrine Carrero Gonococcus, Nuc. Acid Amp Negative Normal Negative [facility] Comment on above: Result Comment: Perf ormed at: =G Performed By: #### C BC #### [facility] [address] [place] [address] Dileep Alise Methodology: Comment Normal [facility] Comment on above: Result Comment: This liquid based ThinPrep(R) pap test was screened with the use of an image guided system. Performed at: WB Performed By: #### C BC #### [facility] [address] [place] [address] Dileepsandrine Carrero Note: Comment Normal [facility] Comment on above: Result Comment: The Pap smear is a screening test designed to aid in the detection of premalignant and malignant conditions of the uterine cervix. It is not a diagnostic procedure and should not be used as the sole means of detecting cervical cancer. Both false-positive and false-negative reports do occur. . Performed at: WB Performed By: #### C BC #### [facility] [address] [place] [address] Dileep Carrero Pathologist Provided ICD10 Comment Normal [facility] Comment on above: Result Comment: [id number] Performed at: WB Performed By: #### C BC #### [facility] [address] [place] [address] Dileep Carrero Performed by: Comment Normal [facility] Comment on above: Result Comment: Raul Robledo, Plastic Sheets Finishing Supervisor (ASCP) Performed at: WB Performed By: #### C BC #### [facility] [address] [place] [address] Dileep Carrero Reflex Criteria: Comment Normal [facility] Comment on above: Result Comment: The HPV DNA reflex criteria were not met with this specimen result therefore, no HPV testing was performed. . Performed at: WB Performed By: #### C BC #### [facility] [address] [place] [address] Dileep Carrero Specimen adequacy: Comment Normal [facility] Comment on above: Result Comment: Sati sfactory for evaluation. Endocervical and/or squamous metaplastic cells (endocervical component) are present. Performed at: WB Performed By: #### C BC #### [facility] [address] [place] [address] Dileep Carrero Trich vag by NACHO Negative Normal Negative [facility] Comment on above: Result Comment: Perf ormed at: =G Performed By: #### C BC #### [facility] [address] [place] [address] Dileep Carrero . . Normal [facility] Comment on above: Result Comment: Perf ormed at: WB Performed By: #### C BC #### [facility] [address] [place] [address] Dileep Carrero CULTURE URINEon 09-21-2018 CULTURE URINE Culture Observations : CALLED GROUP B TO JALEN IN ER @ 4940 09/20/18 Isolate 1 STREPTOCOCCUS AGALACTIAE >100,000 CFU/ML [...] F Trimethoprim/Sulfamet hoxazole S F Normal [facility] Comment on above: Performed By: #### C BC #### [facility] [address] [place] [address] Dileep Carrero ABO AND RH TYPEon 09-19-2018 ABO and Rh group Nom (Bld) ABO Rh Typing A Rh Positive Normal [facility] Comment on above: Performed By: #### Willie GAVIN #### [facility] [address] [place], [place] [address] Dileep Carrero ER URINE PROFILEon 9 Bilirubin [Mass/Vol] Negative Normal NEGATIVE [facility] Comment on above: Performed By: #### SHIRLEY HOPSON #### [facility] [address] [place], [place] [address] Dileep Carrero BLOOD LARGE Normal NEGATIVE [facility] Comment on above: Performed By: #### SHIRLEY HOPSON #### [facility] [address] [place], [place] [address] Dileep Carrero Clarity (U) SL CLOUDY Normal [facility] Comment on above: Performed By: #### SHIRLEY HOPSON #### [facility] [address] [place], [place] [address] Dileep Alise Color (U) LT. YELLOW Normal YELLOW [facility] Comment on above: Performed By: #### SHIRLEY HOPSON #### [facility] [address] [place], [place] [address] Dileep Alise ERUAHD A micrscopic examination will be performed if indicated. Normal [facility] Comment on above: Performed By: #### SHIRLEY HOPSON #### [facility] [address] [place] [address] Dileep Alise Glucose [Mass/Vol] Negative Normal NEGATIVE [facility] Comment on above: Performed By: #### SHIRLEY HOPSON #### [facility] [address] [place] [address] Dileep Alise Ketones Ql (U) Negative Normal NEGATIVE [facility] Comment on above: Performed By: #### SHIRLEY HOPSON #### [facility] [address] [place] [address] Dileep Alise Nitrite Ql (U) Negative Normal NEGATIVE [facility] Comment on above: Performed By: #### SHIRLEY HOPSON #### [facility] [address] [place] [address] Dileep Alise pH (Bld) 6.5 Normal 5-9 [facility] Comment on above: Performed By: #### SHIRLEY HOPSON #### [facility] [address] [place] [address] Dileep Alise Protein (U) [Mass/Vol] Negative Normal [facility] Comment on above: Performed By: #### SHIRLEY HOPSON #### [facility] [address] [place] [address] Dileep Alise SPEC GRAVITY 1.020 Normal 1.005-<=1.025 [facility] Comment on above: Performed By: #### SHIRLEY HOPSON #### [facility] [address] [place] [address] Dileep Alise UR MICRO IND INDICATED Normal [facility] Comment on above: Performed By: #### SHIRLEY HOPSON #### [facility] [address] [place] [address] Dileep Alise Urobilinogen Qn (U) 0.2 EU/dl Normal [facility] Comment on above: Performed By: #### ABRAN HOPSONRO #### [facility] [address] [place], [place] [address] Dileep Alise WBC (Bld) [#/Vol] Negative Normal NEGATIVE [facility] Comment on above: Performed By: #### Alexis DIAL UMICRO #### [facility] [address] [place], [place] [address] Dileep Alise URINE MICROSCOPIC ONLYon Bacteria LM.HPF (Urine sed) [#/Area] SMALL Normal NONE SEEN [facility] Comment on above: Performed By: #### Alexis DIAL UMICRO #### [facility] [address] [place] [address] Dileep Alise CAST NONE SEEN Normal NONE SEEN [facility] Comment on above: Performed By: #### Alexis DIAL UMICRO #### [facility] [address] [place] [address] Dileep Alise Crystals LM Nom (Urine sed) NONE SEEN Normal NONE SEEN [facility] Comment on above: Performed By: #### Alexis DIAL UMDANIELLERO #### [facility] [address] [place] [address] Dileep Alise CULTURE INDICATED Normal [facility] Comment on above: Performed By: #### Alexis DIAL UMICRO #### [facility] [address] [place] [address] Dileep Alise Epithelial cells LM.HPF (Urine sed) [#/Area] MANY Normal [facility] Comment on above: Performed By: #### Alexis DIAL UMICRO #### [facility] [address] [place] [address] Dileep Alise MUCOUS MODERATE Normal NONE SEEN [facility] Comment on above: Performed By: #### Alexis DIAL UMICRO #### [facility] [address] [place] [address] Dileep Alise RBC (U) [#/Vol] 5-10 Normal 0-2 [facility] Comment on above: Performed By: #### E SHIRLEY DIAL #### [facility] [address] [place], [place] [address] Dileep Carrero WBC (Bld) [#/Vol] 5-10 Normal NONE SEEN [facility] Comment on above: Performed By: #### SHIRLEY HOPSON #### [facility] [address] [place], [place] [address] Dileep Carrero US PREG DATING >14WEEKSon US PREG DATING >14WEEKS [address] [place] [address] Patient: PRINCESS DSOUZA Exam Date: 09/19/2018 : 1990 Gender:F Ordering : JOVANY MANZO Admission #: [id number] Family : DR BRANT MARTINEZ D.O. Order #: [id number] CLICK HERE TO VIEW EXAM RADIOLOGY REPORT [...] M.D. on 09/19/2018 at 15:50 Normal [facility] CULTURE URINEon 09-05-2018 CULTURE URINE Culture [...] R F Vancomycin S F Normal [facility] Comment on above: Performed By: #### U RCX #### [facility] [address] [place] [address] Dileep Alise UA RANDOM W/MICROSCOPICon Bacteria LM.HPF (Urine sed) [#/Area] SMALL Normal NONE SEEN [facility] Comment on above: Performed By: #### U AMIC #### [facility] [address] [place] [address] Dileep Alise Bilirubin [Mass/Vol] Negative Normal NEGATIVE [facility] Comment on above: Performed By: #### U AMIC #### [facility] [address] [place] [address] Dileep Alise BLOOD Negative Normal NEGATIVE [facility] Comment on above: Performed By: #### U AMIC #### [facility] [address] [place], [place] [address] Dileep Alise CAST NONE SEEN Normal NONE SEEN [facility] Comment on above: Performed By: #### U AMIC #### [facility] [address] [place], [place] [address] Dileep Alise Clarity (U) CLEAR Normal [facility] Comment on above: Performed By: #### U AMIC #### [facility] [address] [place] [address] Dileep Alise Color (U) YELLOW Normal YELLOW [facility] Comment on above: Performed By: #### U AMIC #### [facility] [address] [place] [id number] Dileep Alise Crystals LM Nom (Urine sed) NONE SEEN Normal NONE SEEN [facility] Comment on above: Performed By: #### U AMIC #### [facility] [address] [place] [id number] Dileep Alise Epithelial cells LM.HPF (Urine sed) [#/Area] FEW Normal [facility] Comment on above: Performed By: #### U AMIC #### [facility] [address] [place] [address] Dileep Alise Glucose [Mass/Vol] Negative Normal NEGATIVE The [facility] Comment on above: Performed By: #### U AMIC #### [facility] [address] [address] Dileep Alise Ketones Ql (U) Negative Normal NEGATIVE The [facility] Comment on above: Performed By: #### U AMIC #### [facility] [address] [id number] Dileep Alise MUCOUS TRACE Normal NONE SEEN [facility] Comment on above: Performed By: #### U AMIC #### [facility] [address] [place] [address] Dileep Alise Nitrite Ql (U) Negative Normal NEGATIVE The [facility] Comment on above: Performed By: #### U AMIC #### [facility] [address] [address] Dileep Alise pH (Bld) 6.0 Normal 5-9 [facility] Comment on above: Performed By: #### U AMIC #### [facility] [address] [place] [address] Dileep Alise Protein [Mass/Vol] Negative Normal The [facility] Comment on above: Performed By: #### U AMIC #### [facility] [address] [place], [place] [address] Dileep Carrero RBC (Bld) [#/Vol] 0-2 Normal 0-2 The [facility] Comment on above: Performed By: #### U AMIC #### [facility] [address] [place], [place] [address] Dileep Carrero SPEC GRAVITY 1.025 Normal 1.005-<=1.025 The [facility] Comment on above: Performed By: #### U AMIC #### [facility] [address] [place], [place] [address] Dileep Carrero Urobilinogen Qn (U) 0.2 EU/dl Normal [facility] Comment on above: Performed By: #### U AMIC #### [facility] [address] [place], [place] [address] Dileepsandrine Carrero WBC (Bld) [#/Vol] 2-5 Normal NONE SEEN The [facility] Comment on above: Performed By: #### U AMIC #### [facility] [address] [place], [place] [address] Dileep Carrero WBC (Bld) [#/Vol] SMALL Normal NEGATIVE The [facility] Comment on above: Performed By: #### U AMIC #### [facility] [address] [place], [place] [address] Dileep Carrero US PREG TVon 08-09-2018 PREG TV [address] [place] [address] Patient: PRINCESS DSOUZA Exam Date: 08/09/2018 : 1990 Gender:F Ordering : AIYANA MORGAN . Admission #: [id number] Family : Order #: [id number] CLICK HERE TO VIEW EXAM RADIOLOGY REPORT [...] M.D. on 08/09/2018 at 13:34 Normal [facility] CBC AUTO DIFFon 08-03-2018 Basophils (Bld) [#/Vol] 0.0 103/ul Normal 0.0-0.1 [facility] Comment on above: Performed By: #### C BC #### [facility] [address] [place] [address] Dileep Alise Basophils/100 WBC (Bld) 0.1 % Critically low 0.2-2.0 [facility] Comment on above: Performed By: #### C BC #### [facility] [address] [place] [address] Dileep Alise Eosinophils (Bld) [#/Vol] 0.0 103/ul Normal 0.0-0.7 [facility] Comment on above: Performed By: #### C BC #### [facility] [address] [place] [address] Dileep Alise Eosinophils/100 WBC (Bld) 0.3 % Critically low 0.9-7.0 [facility] Comment on above: Performed By: #### C BC #### [facility] [address] [place], [place] [address] Dileep Alise Erythrocyte distribution width (RBC) [Ratio] 11.9 % Normal 11.0-15.0 [facility] Comment on above: Performed By: #### C BC #### [facility] [address] [place], [place] [address] Dileep Alise Hematocrit (Bld) [Volume fraction] 40.3 % Normal 36.0-48.0 [facility] Comment on above: Performed By: #### C BC #### [facility] [address] [place], [place] [address] Dileep Alise Hemoglobin (Bld) [Mass/Vol] 14.2 g/dL Normal 12.0-16.0 [facility] Comment on above: Performed By: #### C BC #### [facility] [address] [place] [address] Dileepsandrine Carrero IG # 0.02 10e3/ul Normal 0.00-0.03 [facility] Comment on above: Performed By: #### C BC #### [facility] [address] [place] [address] Dileep Alise IG % 0.3 % Normal 0.0-0.5 [facility] Comment on above: Performed By: #### C BC #### [facility] [address] [place] [address] Dileep Alise Lymphocytes (Bld) [#/Vol] 0.3 103/ul Critically low 1.2-3.8 [facility] Comment on above: Performed By: #### C BC #### [facility] [address] [place] [address] Dileep Alise Lymphocytes/100 WBC (Bld) 4.6 % Critically low 20.5-60.0 [facility] Comment on above: Performed By: #### C BC #### [facility] [address] [place] [address] Dileepsandrine Carrero MANUAL DIFF REQ NO Normal [facility] [place] [facility] Comment on above: Performed By: #### C BC #### [facility] [address] [place] [address] Dileepsandrine Tolentinoen MCH (RBC) [Entitic mass] 31.8 pg Normal 26.7-34.0 [facility] Comment on above: Performed By: #### C BC #### [facility] [address] [place], [place] [address] Dileep Alise MCHC (RBC) [Mass/Vol] 35.2 g/dL Normal 29.9-35.2 [facility] Comment on above: Performed By: #### C BC #### [facility] [address] [place] [address] Dileep Alise MCV (RBC) [Entitic vol] 90.2 fL Normal 81.0-99.0 [facility] Comment on above: Performed By: #### C BC #### [facility] [address] [place], [place] [address] Dileep Alise Monocytes (Bld) [#/Vol] 0.3 103/ul Normal 0.3-0.8 [facility] Comment on above: Performed By: #### C BC #### [facility] [address] [place], [place] [address] Dileep Alise Monocytes/100 WBC (Bld) 4.0 % Normal 1.7-12.0 [facility] Comment on above: Performed By: #### C BC #### [facility] [address] [place], [place] [address] Dileep Alise Neutrophils (Bld) [#/Vol] 6.3 103/ul Normal 1.4-6.5 [facility] Comment on above: Performed By: #### C BC #### [facility] [address] [place], [place] [address] Dileep Alise Neutrophils/100 WBC (Bld) 90.7 % Critically high 43.0-75.0 [facility] Comment on above: Performed By: #### C BC #### [facility] [address] [place], [place] [address] Dileep Alise Platelet mean volume (Bld) [Entitic vol] 9.9 fL Normal 9.5-13.5 [facility] Comment on above: Performed By: #### C BC #### [facility] [address] [place], [place] [address] Dileep Alise Platelets (Bld) [#/Vol] 193 103/ul Normal 150-450 [facility] Comment on above: Performed By: #### C BC #### [facility] [address] [place], [place] [address] Dileep Alise RBC (Bld) [#/Vol] 4.47 106/ul Normal 4.20-5.40 [facility] Comment on above: Performed By: #### C BC #### [facility] [address] [place], [place] [address] Dileep Alise WBC (Bld) [#/Vol] 7.0 103/ul Normal 4.0-11.0 [facility] Comment on above: Performed By: #### C BC #### [facility] [address] [place], [place] [address] Dileep Alise ER URINE PROFILEon 9 Bilirubin [Mass/Vol] Negative Normal NEGATIVE [facility] Comment on above: Performed By: #### E RUR #### [facility] [address] [place] [address] Dileep Alise BLOOD Negative Normal NEGATIVE [facility] Comment on above: Performed By: #### E RUR #### [facility] [address] [place] [address] Dileep Alise Clarity (U) CLEAR Normal [facility] Comment on above: Performed By: #### E RUR #### [facility] [address] [place] [address] Dileep Alise Color (U) YELLOW Normal YELLOW [facility] Comment on above: Performed By: #### E RUR #### [facility] [address] [place] [address] Dileep Alise ERUAHD A micrscopic examination will be performed if indicated. Normal [facility] Comment on above: Performed By: #### E RUR #### [facility] [address] [place] [address] Dileep Alise Glucose [Mass/Vol] Negative Normal NEGATIVE [facility] Comment on above: Performed By: #### E RUR #### [facility] [address] [place] [address] Dileep Alise Ketones Ql (U) 15 mg/dl Normal NEGATIVE [facility] Comment on above: Performed By: #### E RUR #### [facility] [address] [place] [address] Dileep Alise Nitrite Ql (U) Negative Normal NEGATIVE [facility] Comment on above: Performed By: #### E RUR #### [facility] [address] [place] [address] Dileep Alise pH (Bld) 5.5 Normal 5-9 The [facility] Comment on above: Performed By: #### E RUR #### [facility] [address] [id number] Dielep Alise Protein (U) [Mass/Vol] Negative Normal [facility] Comment on above: Performed By: #### E RUR #### [facility] [address] [place], [place] [address] Dileep Alise SPEC GRAVITY >=1.030 Normal 1.005-<=1.025 [facility] [place] [facility] Comment on above: Performed By: #### E RUR #### [facility] [address] [id number] Dileep Alise UR MICRO IND NOT INDICATED Normal [facility] [place] [facility] Comment on above: Performed By: #### E RUR #### [facility] [address] [place], [place] [address] Dileep Alise Urobilinogen Qn (U) 0.2 EU/dl Normal [facility] Comment on above: Performed By: #### E RUR #### [facility] [address] [place], [place] [address] Dileep Alise WBC (Bld) [#/Vol] Negative Normal NEGATIVE [facility] Comment on above: Performed By: #### E RUR #### [facility] [address] [place], [place] [address] Dileep Alise PROF CHEM 8 (BAS METB)on Anion gap [Moles/Vol] 13.9 mmol/L Normal [facility] Comment on above: Performed By: #### B MP #### [facility] [address] [place], [place] [address] Dileep Alise Calcium [Mass/Vol] 8.7 mg/dL Normal 8.4-10.2 [facility] Comment on above: Performed By: #### B MP #### [facility] [address] [place], [place] [address] Dileep Alise Chloride [Moles/Vol] 101 mmol/L Normal 98-107 [facility] Comment on above: Performed By: #### B MP #### [facility] [address] [place], [place] [address] Dileep Alise CO2 [Moles/Vol] 22.8 mmol/L Normal 22.0-30.0 [facility] Comment on above: Performed By: #### B MP #### [facility] [address] [id number] Dileep Alise Creatinine [Mass/Vol] 0.74 mg/dL Normal 0.52-1.04 [facility] Comment on above: Performed By: #### B MP #### [facility] [address] [place], [place] [address] Dileep Alise EGFR-AF MALAYSIAN >60 Normal >=60 [facility] Comment on above: Performed By: #### B MP #### [facility] [address] [id number] Dileep Alise EGFR-NON AF MALAYSIAN >60 Normal >=60 [facility] Comment on above: Performed By: #### B MP #### [facility] [address] [id number] Dileep Alise Glucose [Mass/Vol] 96 mg/dL Normal 74-106 [facility] Comment on above: Performed By: #### B MP #### [facility] [address] [id number] Dileep Alise Potassium [Moles/Vol] 3.7 mmol/L Normal 3.4-5.0 [facility] Comment on above: Performed By: #### B MP #### [facility] [address] [id number] Dileep Alise Sodium [Moles/Vol] 134 mmol/L Critically low 137-145 [facility] Comment on above: Performed By: #### B MP #### [facility] [address] [place], [place] [address] Dileep Alise Urea nitrogen [Mass/Vol] 14.0 mg/dL Normal 7.0-17.0 [facility] Comment on above: Performed By: #### B MP #### [facility] [address] [id number] Dileep Alise Urea nitrogen/Creatinine [Mass ratio] 18.9 mg/mg Normal [facility] Comment on above: Performed By: #### B #### [facility] [address] [place], [place] [address] Dileep Carrero US PELVIS AND TRANSVAGon US PELVIS AND TRANSVAG [address] [place] [address] Patient: PRINCESS DSOUZA Exam Date: 06/02/2018 : 1990 Gender:F Ordering : AIYANA MORGAN . Admission #: [id number] Family : Order #: [id number] CLICK HERE TO VIEW EXAM RADIOLOGY REPORT [...] George M.D. 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 [facility] Vital Signs Date Time Vital Sign Value Performing Clinician Faci lity 03-20-2025 15:53-0400 Body height 165.1 cm [employer] Work Phone: [facility] 03-20-2025 15:53-0400 Body mass index (BMI) [Ratio] 29.5 kg/m2 Kaylyn Estefani DO Work Phone: [facility] 03-20-2025 15:53-0400 Body weight 80.4 kg Kaylyn Estefani DO Work Phone: [facility] 03-20-2025 15:53-0400 Diastolic blood pressure 82 mm[Hg] Kaylyn Estefani DO Work Phone: [facility] 03-20-2025 15:53-0400 Systolic blood pressure 120 mm[Hg] Kaylyn Estefani DO Work Phone: [facility] 02-20-2025 15:55-0400 Body height 165.1 cm Kaylyn Estefani DO Work Phone: [facility] 02-20-2025 15:55-0400 Body mass index (BMI) [Ratio] 30.79 kg/m2 Kaylyn Estefani DO Work Phone: [facility] 02-20-2025 15:55-0400 Body weight 83.92 kg Kaylyn Estefani DO Work Phone: [facility] 02-20-2025 15:55-0400 Diastolic blood pressure 78 mm[Hg] Kaylyn Estefani DO Work Phone: [facility] 02-20-2025 15:55-0400 Systolic blood pressure 118 mm[Hg] Kaylyn Estefani DO Work Phone: [facility] 01-02-2025 17:22-0400 Body weight 84.82 kg Joann Floro CNM Work Phone: [facility] 01-02-2025 17:22-0400 Diastolic blood pressure 80 mm[Hg] Joann Floro CNM Work Phone: [facility] 01-02-2025 17:22-0400 Systolic blood pressure 120 mm[Hg] Joann Floro CNM Work Phone: [facility] Healthcare Encounters Encounter Date Encounter Type Care [...] Bamboo flowsheet Kaylyn Estefani DO Work Phone: [facility] Start: 02-20-2025 End: 02-20-2025 Bamboo flowsheet [...] 08-04-2023 Emergency department patient visit MONIQUE NICHOLE [facility] Start: 03-07-2019 End: 03-08-2019 Patient encounter [...] 05-02-2017 End: 05-02-2017 Emergency department patient visit [facility] Procedures Date Procedure Procedure Detail Performing [...] Screening for malign ant neoplasm of cervix [facility] Start: 10-07-2026 Screening for malign ant neoplasm of cervix [facility] Start: 03-04-2026 Screening for malign ant neoplasm of cervix HPV/Cotest [facility] Start: 04-20-2025 End: 04-20-2025 Patient encounter procedure 04/20/2025 3:50 PM EDT Office Visit [facility] [address] [place] [phone] Digna Ham, CERTIFIED APPLIANCE SERVICE TECHNICIAN [address] [place] [phone] [facility] [place] [facility] Start: 03-27-2025 Influenza vaccination N [facility] Start: 03-20-2025 End: 03-20-2025 Patient encounter procedure 03/20/2025 3:50 PM EDT Consult [facility]RE[facility] C[facility] [address] [place] [address] Kaylyn Jara DO [address] [place], [place] [address] [facility] [place] [facility] Start: 01-02-2025 End: 01-02-2026 THINPREP IMAGING PAP AND HPV DNA REFLEX HPV 16,18 THINPREP IMAGING PAP AND HPV DNA REFLEX HPV 16,18 Pathology and Cytology Routine Screening for cervical cancer Expected: 01/02/2025 (Approximate), Expires: 01/02/2026 [facility] Work Phone: Comment on above: Expected: 01/02/2025 (Approximate), Expires: 01/02/2026 Payers Date Payer Category Payer [place] [employer] [id number] 2023 Unknown [id number] 2020 Medicaid [id number] 1990 Unknown [id number] 2.16.840.1.668099.3.579.2. 593 1990 Unknown [id number] 2.16.840.1.543013.3.579.2. 593 1990 Unknown [id number] 2.16.840.1.334556.3.579.2. 593 1990 Unknown [id number] 2.16.840.1.132733.3.579.2. 593 1990 Unknown [id number] 2.16.840.1.213088.3.579.2. 593 1990 Unknown [id number] 2.16.840.1.565407.3.579.2. 593 1990 Unknown [id number] 2.16.840.1.288183.3.579.2. 593 1990 Unknown [id number] 2.16.840.1.404370.3.579.2. 593 1990 Unknown [id number] 2.16.840.1.617590.3.579.2. 593 1990 Unknown [id number] 2.16.840.1.792140.3.579.2. 593 1990 Unknown [id number] 2.16.840.1.419299.3.579.2. 593 1990 Unknown [id number] 2.16.840.1.419148.3.579.2. 593 1990 Unknown [id number] 2.16.840.1.040810.3.579.2. 593 1990 Unknown [id number] 2.16.840.1.330184.3.579.2. 593 1990 Unknown [id number] 2.16.840.1.683770.3.579.2. 1286 1990 Unknown [id number] 2.16.840.1.308816.3.579.2. 1259 1990 Unknown [id number] 2.16.840.1.177276.3.579.2. 1259 1990 Unknown [id number] 2.16.840.1.986640.3.579.2. 1259 1959 Private Health Insurance [id number] Private Health Insurance [id number] Private Health Insurance [id number] Private Health Insurance [id number] Social History Date Type Detail Facility Tobacco smoking stat [facility] Tobacco smoking consumption unknown [facility] Start: 1990 Sex assigned at Not on file [facility] Start: 01-02-2025 End: 02-20-2025 Gender identity Not on file [facility] Start: 01-02-2025 Tobacco smoking stat [facility] Never smoked tobacco [facility] Start: [...] on 04-14-[address] Jara at [facility]. MEDICATIONS Current Outpatient Medications Medication Instructions [...] Gestational diabetes mellitus (GDM), delivered, current hospitalization ([facility]) H/O human papillomavirus infection HISTORY PAST MEDICAL HISTORY SOCIAL HISTORY Past Medical History: Diagnosis Date Gestational diabetes mellitus (GDM), delivered, current hospitalization ([facility]) H/O human papillomavirus infection Social History Tobacco [...] reviewed, and patient is to proceed to [facility]. Follow Up: Patient is to follow [...] Gestational diabetes mellitus (GDM), delivered, current hospitalization ([facility]) H/O human papillomavirus infection HISTORY PAST MEDICAL HISTORY SOCIAL HISTORY Past Medical History: Diagnosis Date Gestational diabetes mellitus (GDM), delivered, current hospitalization ([facility]) H/O human papillomavirus infection Social History Tobacco [...] nursing note reviewed. Exam conducted with a endoscopy registered nurse present. 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 Healthcare Evaluation note Note Date & Type Note Facility Evaluation note Diagnosis Normal gynecologic examination Screening for cervical cancer Screening for malignant neoplasm of the cervix documented in this encounter [facility] Healthcare Evaluation note Note Date & Type Note Facility Evaluation note Diagnosis Unwanted fertility Encounter to discuss procedure Encounter for consultation for female sterilization Encounter for weight management documented in this encounter [facility] Healthcare Evaluation note Note Date & Type Note Facility Evaluation note Diagnosis Pre-op examination Request for sterilization Encounter for weight management documented in this encounter [facility] Healthcare Summary Purpose Family History No Family History Records FoundNo Family History Records FoundNo Family History Records FoundNo Family History Records Found Advance Directives No Advanced Directives Records FoundNo Advanced Directives Records FoundNo Advanced Directives Records FoundNo Advanced Directives Records Found Additional Source Comments INFORMATION SOURCE (unrecogn ized section and content) DATE CREATED AUTHOR 01/19/2018 Aura Lucas [facility] DATE CREATED AUTHOR AUTHOR'S ORGANIZ ATION 03/26/2019 [facility] DATE CREATED AUTHOR AUTHOR'S ORGANIZ ATION 08/09/2023 [facility] DATE CREATED AUTHOR AUTHOR'S ORGANIZ ATION 03/21/2025 [facility] dical Specialists [employer] Care Teams (unrecognized sec tion and content) Fire Assistant Relationship Specialty Start Date End Date Farrah Barragan MD [address] [place], [place] [id number] PCP - General Family Medicine 01/12/24 Fire Assistant Relationship Specialty Start Date End Date Farrah Barragan MD [address] [facility] [place] [address] PCP - General Family Medicine 01/12/24 Fire Assistant Relationship Specialty Start Date End Date Farrah Barragan MD [address] [place] [address] PCP - General Family Medicine 01/12/24 Fire Assistant Relationship Specialty Start Date End Date Farrah Barragan MD [address] [place] [address] PCP - General Family Medicine 01/12/24 Reason for Visit (unrecogniz ed section and content) Reason Comments Gynecologic Exam Reason Comments Consult Pt present today to discuss a tubal. Pt is a referral from Yashira Liu. Specialty Diagnoses / Procedures Referred By Abhishek jennings Referred To Contact Obstetrics and Gynecology Diagnoses Unwanted fertility Procedures IA OFFICE/OUTPATIENT NEW HIGH MDM 60 MINUTES Joann Liu CNM [address] [place] [address] Phone: tel: fax: Kaylyn Jara, [address] [place] [address] Phone: tel: fax: Referral ID Status Reason Start Date Expiration Date V isits Requested Visits Authorized [id number] Closed Specialty Services Required 01/31/2025 07/30/2025 1 [...] BE BASED ON THE PRIMARY CLINICAL RECORDS. [employer] [facility]. provides no warranty or guarantee of the accuracy or completeness of information in this document.
[2025-04-14 06:28] LABS: Hematocrit 39.8 % (36.0-48.0); Hemoglobin 14.0 g/dL (12.0-16.0); Immature Granulocytes Abs Auto 0.01 10^3/uL (0.00-0.03); Immature Granulocytes Pct Auto 0.2 % (0.0-0.5); Lymphocytes Absolute Auto 1.3 10^3/uL (1.2-3.8); Mean Corpuscular HGB Conc 35.2 g/dL (29.9-35.2); Mean Corpuscular Hemoglobin 31.2 pg (26.7-34.0); Mean Corpuscular Volume 88.6 fL (81.0-99.0); Platelet Count 232 10^3/uL (150-450); Red Blood Count 4.49 10^6/uL (4.20-5.40); White Blood Count 6.3 10^3/uL (4.0-11.0)
[2025-04-14] MEDS: SCOPOLAMINE 1 MG/3 DAYS TRANSDERM PATCH 1 PATCH TD (07:28)
[2025-04-14] MEDS: FAMOTIDINE/PF 20 MG/2 ML VIAL IV (07:28)
--- NOTE | 2025-04-14 08:31 | P.ON_ITS ---
Brief Operative Note Date of procedure: 04/14/25 Pre-op diagnosis general: desires permanenet sterilization, multiparity Post-op diagnosis: same as pre-op Procedure: NAME OF PROCEDURE: robotic assisted bilateral laparoscopic salpingectomy PROCEDURE: The patient was taken back to the Operating Room where she was given general anesthesia without difficulty. She was then prepped and draped in the normal sterile fashion after being placed in a dorsal lithotomy position. A wet sponge stick was placed into the patient's vagina. Attention was then turned to the patient's abdomen, where a scalpel was used to make a small infraumbilical incision. The S retractors were then used to dissect the underlying layers until the fascia could be seen. The fascia was then grasped with Seb clamps and tented up. A knife was then used to make a small incision to the fascia. The muscle was identified, at that time two sutures of #0 Vicryl on a GI needle was then used and placed through the fascia. the peritoneum was then identified and entered bluntly. The 10-4 Everette was then placed into the patient's abdomen. This was confirmed with direct visualization of the bowel, using the laparoscope. The patient's abdomen was then insufflated using approximately 4 liters of CO2 gas. Survey of the patient's abdomen demonstrated ovaries were normal in appearance as well as both tubes and uterus. A second and third rt and lt lateral robotic ports which were 8 mm in size, was then placed after the skin incision was made under direct visualization . the robotic arms were engaged. The patient's tube on the patient's right side was identified and tented up using a grasper, the ligasure apparatus was then used to come across the mesosalpingx from the fimbriated end to the insertion site at the uterus, the tube was then amputated and removed in its entirety. This was done on the contralateral side. The tubes were the removed from the patients abdomen. Excellent hemostasis was noted. The lateral ports were then moved under direct visualization with excellent hemostasis. All instruments were removed from the patient's abdomen. The fascia was closed using the #0 Vicryl on GI needle. The skin was closed using 4-0 Vicryl subcuticularly. All instruments were removed from the patient's vagina as well. The patient was taken out of the dorsal lithotomy position and placed in the supine position and taken to recovery in stable condition. Sponge, lap and needle counts were correct x2. Anesthesia: MITZI Surgeon: Scott Jara Associate Professor Of Violin: Marlene Simon Estimated blood loss (mL): 5 Pathology: other (bilateral tubes) Condition: stable Disposition: PACU Urinary Catheter Management Urinary Catheter Management Urethral: Cath placed during this visit: no
[2025-04-14] MEDS: HYDROCODONE/ACET 5-325 MG TABLET 1 TAB PO (10:01)
== END 2025-04-14 11:39 | disposition home or self-care (01) ==
LOC: SURGOUT 06:14
PROVIDERS: PCP Nurse Practitioner; Visit Provider Obstetrics & Gynecology
PROC: (CPT 840; principal; 2025-04-14 07:30)
DX: Z30.2 Encounter for sterilization (principal); Z90.49 Acquired absence of other specified parts of digestive tract
CPT/HCPCS: 58661; 36415; 82948; 84702; 85025; J1100; J1171; J1885; J2250; J2405; J2704; J3010; J3490